=== PATIENT | male | born 1940 | race Caucasian/White ===

== ENCOUNTER 2016-08-26 22:12 | Emergency (ER) | payer MEDICARE, OTHER ==
--- NOTE | 2016-08-26 23:11 | EDM.PDOC ---
ED HPI GENERAL MEDICAL PROBLEM - General Chief Complaint: General Stated Complaint: unsteady gait Time Seen by Provider: 08/26/16 22:30 Source of Information: Reports: Patient, Family History Limitations: Reports: No Limitations - History of Present Illness INITIAL COMMENTS - FREE TEXT/NARRATIVE: Patient was taking his usual walk around the block and started to notice he was wobbling back and forth. He did not feel any spinning or movement but was just having trouble keeping balance. Once he was home he started to have slow improvement and feels OK now. Has h/o a similar but more severe event 14 years ago and was told he had a problem in the cerebellum seen on an MRI (They remember it as a bleed but the story sounds like Vertebral-Basilar insufficiency. Has CAD, Cardiac bypass, COPD, on O2 prn, paroxysmal Afib Onset: Today, Sudden Duration: Hour(s): (1.5), Resolved Prior to Arrival Quality: Reports: Other (no pain) Severity: Moderate Improves with: Reports: None Worsens with: Reports: None Associated Symptoms: Reports: No Other Symptoms, Diaphoresis (Was a little sweaty at home but may be from the hot humid evening) - Related Data Allergies Allergy/AdvReac Type Severity Reaction Status Date / Time lisinopril Allergy Rash Verified 08/26/16 22:18 Home Meds: Home Meds Docusate Sodium [Stool Softener] 200 mg PO QPM PRN 11/10/13 [History] Omeprazole [Prilosec] 40 mg PO DAILY 11/10/13 [History] Losartan Potassium 50 mg PO DAILY 03/22/15 [History] Metoprolol Succinate [Toprol XL] 100 mg PO DAILY 03/22/15 [History] atorvaSTATin [Lipitor] 10 mg PO BEDTIME 03/22/15 [History] Aspirin/Calcium Carbonate/Mag [Aspirin Buffered 325 mg Tab] 81 mg PO DAILY 03/29 [History] Budesonide/Formoterol [Symbicort 160-4.5 MCG] 2 puff INH BID 03/29/16 [History] Fluticasone Propionate [Flonase] 2 sprays NASBOTH DAILY 03/29/16 [History] Furosemide [Lasix] 40 mg PO DAILY PRN 03/29/16 [History] Lactobacillus Acidophilus [Probiotic] 1 cap PO BID 03/29/16 [History] Loperamide HCl [Imodium A-D] 2 mg PO DAILY PRN 03/29/16 [History] Loratadine [Claritin] 10 mg PO DAILY PRN 03/29/16 [History] Tamsulosin HCl [Flomax] 0.4 mg PO DAILY 03/29/16 [History] Warfarin Dosing [Coumadin Ask] 5 mg PO ASDIRECTED 03/29/16 [History] amLODIPine Besylate [Amlodipine Besylate] 2.5 mg PO DAILY 03/29/16 [History] Albuterol [IJD: Ventolin HFA] 1 puff INH 1400,1800 08/26/16 [History] SitaGLIPtin [Januvia] 50 mg PO DAILY 08/26/16 [History] Warfarin [Coumadin] 7.5 mg PO ASDIRECTED 08/26/16 [History] buPROPion [Wellbutrin XL] 150 mg PO DAILY 08/26/16 [History] Past Medical History HEENT History: Reports: Impaired Vision, Other (See Below) Other HEENT History: seasonal allergies Cardiovascular History: Reports: Afib, Bypass, High Cholesterol, Hypertension, Other (See Below) Other Cardiovascular History: Fluid build up in lungs-heart surgery Respiratory History: Reports: COPD Gastrointestinal History: Reports: Chronic Constipation, Chronic Diarrhea, GERD Genitourinary History: Reports: Other (See Below) Other Genitourinary History: prostate swelling Musculoskeletal History: Reports: Back Pain, Chronic Neurological History: Reports: None Psychiatric History: Reports: Depression Endocrine/Metabolic History: Reports: Diabetes, Type II - Past Surgical History HEENT Surgical History: Reports: Other (See Below) Cardiovascular Surgical History: Reports: Vascular Surgery Social & Family History - Tobacco Use Smoking Status *Q: Former Smoker Years of Tobacco use: 63 Used Tobacco, but Quit: Yes Month Tobacco Last Used: November Second Hand Smoke Exposure: No - Caffeine Use Caffeine Use: Reports: Coffee - Alcohol Use Days Per Week of Alcohol Use: 0 - Recreational Drug Use Recreational Drug Use: No ED ROS GENERAL - Review of Systems Review Of Systems: ROS reveals no pertinent complaints other than HPI. ED EXAM, GENERAL - Physical Exam Exam: See Below Exam Limited By: No Limitations General Appearance: Alert, WD/WN, No Apparent Distress Eye Exam: Bilateral Eye: EOMI, PERRL Ears: Normal External Exam, Hearing Loss Nose: Normal Inspection, Normal Mucosa Throat/Mouth: Normal Inspection, Normal Lips, Normal Oropharynx, Normal Voice, No Airway Compromise Head: Atraumatic, Normocephalic Neck: Normal Inspection, Supple, Non-Tender, Full Range of Motion Respiratory/Chest: No Respiratory Distress, Lungs Clear, Normal Breath Sounds, No Accessory Muscle Use Cardiovascular: Normal Peripheral Pulses, Regular Rate, Rhythm, No Murmur GI/Abdominal: Normal Bowel Sounds, Soft, Non-Tender, No Distention Back Exam: Normal Inspection, Full Range of Motion Extremities: Normal Inspection, Normal Range of Motion, No Pedal Edema, Normal Capillary Refill Neurological: Alert, Oriented, CN II-XII Intact, Normal Cognition, No Motor/ Sensory Deficits, Other (finger to nose, heal to st normal. No pronator drift ) Psychiatric: Normal Affect, Normal Mood Skin Exam: Warm, Dry, Intact, Normal Color, No Rash Lymphatic: No Adenopathy Course - Vital Signs Last Recorded V/S: Last Vital Signs Temp 36.6 C 08/26/16 22:18 Pulse 78 08/26/16 23:58 Resp 18 08/26/16 23:58 BP 120/60 08/26/16 23:58 Pulse Ox 98 08/26/16 23:58 - Orders/Labs/Meds Orders: Active Orders 24 hr Category Date Time Status EKG Documentation Completion [RC] ASDIRECTED Care 08/26/16 22:52 Active Chest 2V [CR] Stat Exams 08/26/16 22:52 Taken Head wo Cont [CT] Stat Exams 08/26/16 22:52 Taken EKG 12 Lead [EK] Stat Ther 08/26/16 22:51 Ordered Labs: Laboratory Tests 08/26/16 08/26/16 08/26/16 Range/Units 23:02 23:02 23:02 WBC 6.8 (5.0-10.0) 10^3/uL RBC 3.81 L (4.50-6.00) 10^6/uL Hgb 11.7 L (13.0-17.0) g/dL Hct 34.1 L (40.0-52.0) % MCV 89.6 (82.0-92.0) fL MCH 30.8 (27.0-31.0) pg MCHC 34.3 (32.0-36.0) g/dL RDW 14.6 H (11.5-14.5) % Plt Count 282 (150-300) 10^3/uL MPV 6.1 L (7.4-10.4) fL Neut % (Auto) 60.3 (50.0-70.0) % Lymph % (Auto) 26.4 (20.0-40.0) % [place] % (Auto) 10.3 H (2.0-8.0) % Eos % (Auto) 2.2 (1.0-3.0) % Baso % (Auto) 0.8 (0.0-1.0) % Neut # (Auto) 4.1 (2.5-7.0) 10^3/uL Lymph # (Auto) 1.8 (1.0-4.0) 10^3/uL [place] # (Auto) 0.7 (0.1-0.8) 10^3/uL Eos # (Auto) 0.1 (0.1-0.3) 10^3/uL Baso # (Auto) 0.1 (0.0-0.1) 10^3/uL PT 17.2 H (8.9-11.4) SEC INR 1.6 H (0.9-1.1) Sodium 139 (136-145) mmol/L Potassium 4.4 (3.3-5.3) mmol/L Chloride 101 (98-115) mmol/L Carbon Dioxide 29.6 (21.0-32.0) mmol/L BUN 16 (6-25) mg/dL Creatinine 1.26 H (0.51-1.17) mg/dL Est Cr Clr Drug Dosing 45.71 mL/min Estimated GFR (MDRD) 56 mL/min Glucose 160 H (70-110) mg/dL Calcium 8.7 (8.7-10.3) mg/dL Total Bilirubin 0.2 (0.2-1.0) mg/dL AST 28 (15-37) U/L ALT 43 (12-78) U/L Alkaline Phosphatase 108 (46-116) IU/L Troponin I 0.08 H* (0.00-0.070) ng/mL B-Natriuretic Peptide 190 H (0-100) pg/mL Total Protein 7.8 (6.4-8.2) g/dL Albumin 3.81 (3.00-4.80) g/dL - Re-Assessments/Exams Free Text/Narrative Re-Assessment/Exam: 08/27/16 00:07 Back to normal balance. Departure - Departure Time of Disposition: 00:08 Disposition: Home, Self-Care 01 Condition: Good Clinical Impression: Balance problem - Discharge Information Forms: ED Department Discharge - Problem List Review Problem List Initiated/Reviewed/Updated: No - My Orders Last 24 Hours: My Active Orders 08/26/16 22:51 EKG 12 Lead [EK] Stat 08/26/16 22:52 EKG Documentation Completion [RC] ASDIRECTED Chest 2V [CR] Stat Head wo Cont [CT] Stat - Assessment/Plan Last 24 Hours: My Active Orders 08/26/16 22:51 EKG 12 Lead [EK] Stat 08/26/16 22:52 EKG Documentation Completion [RC] ASDIRECTED Chest 2V [CR] Stat Head wo Cont [CT] Stat Assessment:: 1. Transient imbalance episode tonight. 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 May have had an episode of AFIB at the time which is now resolved. 2. Trace increase in Troponin over negative (0.08 vs 0.07), and some increase in creatinine 1.23 both are likely due to the cardiac cath. he had last week. 3. F/U with the clinic sometime in the next week Plan: as above
[2016-08-26 23:59] VITALS: BP 120/60
== END 2016-08-27 00:40 | disposition home or self-care (01) ==
LOC: KA.ED 22:12 → SUPCPDRO 22:12 → KA.ED 08-27 00:40
DX: R26.89 Other abnormalities of gait and mobility (principal); I10 Essential (primary) hypertension; I25.10 Atherosclerotic heart disease of native coronary artery without angina pectoris; E78.00 Pure hypercholesterolemia, unspecified; J44.9 Chronic obstructive pulmonary disease, unspecified; K21.9 Gastro-esophageal reflux disease without esophagitis; E11.9 Type 2 diabetes mellitus without complications; F32.9 Major depressive disorder, single episode, unspecified; Z95.1 Presence of aortocoronary bypass graft; Z98.890 Other specified postprocedural states; Z87.891 Personal history of nicotine dependence; Z79.82 Long term (current) use of aspirin; Z79.899 Other long term (current) drug therapy; Z88.8 Allergy status to other drugs, medicaments and biological substances
CPT/HCPCS: 70450; 71020; 80053; 83880; 84484; 85025; 85610; 93005; 99285

== ENCOUNTER 2017-01-10 00:01 | Emergency (ER) | payer MEDICARE, OTHER ==
[2017-01-10 00:44] VITALS: BP 137/61
--- NOTE | 2017-01-10 01:13 | EDM.PDOC ---
ED HPI GENERAL MEDICAL PROBLEM - General Chief Complaint: General Stated Complaint: falling Time Seen by Provider: 01/10/17 01:05 Source of Information: Reports: Patient, Family ( and daughter) History Limitations: Reports: No Limitations - History of Present Illness INITIAL COMMENTS - FREE TEXT/NARRATIVE: Patient is a 76-year-old gentleman who presents to emergency department this morning via private vehicle with and daughter. states that this evening patient went up stairs into the master bathroom to change and get ready for bed. She heard a bang and when she went upstairs she found him sitting on the floor. He states that he slipped and slid down the wall. states that he has had multiple fall episodes over last couple months, has been seen by Dr. Babcock, and was also seen by cardiology 3 weeks ago. Exam is said to be negative and cardiology referred them back to primary care for a neurology consult. Patient appears in no distress, is currently on blood thinners, has no acute bruising, and is acting appropriate. Prior to the patient being examined, the daughter requested patient be admitted and transferred tomorrow to [facility] for neurology consult. Patient states that he does have some left shoulder discomfort, but denies any head injury, headache, vertigo, chest pain, shortness of breath, neck pain, hip pain, back pain, vision changes, or lower extremity pain. Onset: Gradual Onset Date: 01/09/17 Onset Time: 23:00 Duration: Hour(s): Location: Reports: Upper Extremity, Left Quality: Reports: Ache Severity: Mild Improves with: Reports: None Worsens with: Reports: Movement Associated Symptoms: Reports: No Other Symptoms - Related Data Allergies Allergy/AdvReac Type Severity Reaction Status Date / Time lisinopril Allergy Rash Verified 01/10/17 00:55 Home Meds: Home Meds Docusate Sodium [Stool Softener] 200 mg PO QPM PRN 11/10/13 [History] Omeprazole [Prilosec] 40 mg PO DAILY 11/10/13 [History] Losartan Potassium 50 mg PO DAILY 03/22/15 [History] Metoprolol Succinate [Toprol XL] 100 mg PO DAILY 03/22/15 [History] atorvaSTATin [Lipitor] 10 mg PO BEDTIME 03/22/15 [History] Aspirin/Calcium Carbonate/Mag [Aspirin Buffered 325 mg Tab] 81 mg PO DAILY 03/29 [History] Budesonide/Formoterol [Symbicort 160-4.5 MCG] 2 puff INH BID 03/29/16 [History] Fluticasone Propionate [Flonase] 2 sprays NASBOTH DAILY 03/29/16 [History] Furosemide [Lasix] 40 mg PO DAILY PRN 03/29/16 [History] Lactobacillus Acidophilus [Probiotic] 1 cap PO BID 03/29/16 [History] Loperamide HCl [Imodium A-D] 2 mg PO DAILY PRN 03/29/16 [History] Loratadine [Claritin] 10 mg PO DAILY PRN 03/29/16 [History] Tamsulosin HCl [Flomax] 0.4 mg PO DAILY 03/29/16 [History] Warfarin Dosing [Coumadin Ask] 5 mg PO ASDIRECTED 03/29/16 [History] amLODIPine Besylate [Amlodipine Besylate] 2.5 mg PO DAILY 03/29/16 [History] Albuterol [IJD: Ventolin HFA] 1 puff INH 1400,1800 08/26/16 [History] SitaGLIPtin [Januvia] 50 mg PO DAILY 08/26/16 [History] Warfarin [Coumadin] 7.5 mg PO ASDIRECTED 08/26/16 [History] buPROPion [Wellbutrin XL] 150 mg PO DAILY 08/26/16 [History] Past Medical History HEENT History: Reports: Impaired Vision, Other (See Below) Other HEENT History: seasonal allergies Cardiovascular History: Reports: Afib, Bypass, High Cholesterol, Hypertension, Other (See Below) Other Cardiovascular History: Fluid build up in lungs-heart surgery Respiratory History: Reports: COPD Other Respiratory History: O2 - continues Gastrointestinal History: Reports: Chronic Constipation, Chronic Diarrhea, GERD Genitourinary History: Reports: Other (See Below) Other Genitourinary History: prostate swelling Musculoskeletal History: Reports: Back Pain, Chronic Neurological History: Reports: None Other Neuro History: CVA vs TIA - 14 years ago Psychiatric History: Reports: Depression Endocrine/Metabolic History: Reports: Diabetes, Type II - Infectious Disease History Infectious Disease History: Reports: Chicken Pox, Shingles - Past Surgical History HEENT Surgical History: Reports: Other (See Below) Cardiovascular Surgical History: Reports: Vascular Surgery Social & Family History - Tobacco Use Smoking Status *Q: Former Smoker Years of Tobacco use: 63 Packs/Tins Daily: 0 Used Tobacco, but Quit: Yes Month Tobacco Last Used: November Second Hand Smoke Exposure: No - Caffeine Use Caffeine Use: Reports: Coffee - Alcohol Use Days Per Week of Alcohol Use: 0 - Recreational Drug Use Recreational Drug Use: No ED ROS GENERAL - Review of Systems Review Of Systems: ROS reveals no pertinent complaints other than HPI. Constitutional: Reports: No Symptoms HEENT: Reports: No Symptoms Respiratory: Reports: No Symptoms Cardiovascular: Reports: No Symptoms Endocrine: Reports: No Symptoms GI/Abdominal: Reports: No Symptoms : Reports: No Symptoms Musculoskeletal: Reports: No Symptoms Skin: Reports: No Symptoms Neurological: Reports: No Symptoms Psychiatric: Reports: No Symptoms Hematologic/Lymphatic: Reports: No Symptoms Immunologic: Reports: No Symptoms ED EXAM, GENERAL - Physical Exam Exam: See Below Exam Limited By: No Limitations General Appearance: Alert, WD/WN, No Apparent Distress Eye Exam: Bilateral Eye: Normal Inspection Nose: Normal Inspection, No Blood Throat/Mouth: Normal Inspection, Normal Oropharynx, No Airway Compromise Head: Atraumatic, Normocephalic Neck: Normal Inspection, Supple, Non-Tender, Full Range of Motion Respiratory/Chest: No Respiratory Distress, Lungs Clear, Normal Breath Sounds, No Accessory Muscle Use, Chest Non-Tender Cardiovascular: Regular Rate, Rhythm, No Murmur GI/Abdominal: Normal Bowel Sounds, Soft, Non-Tender Back Exam: Normal Inspection, Full Range of Motion. No: CVA Tenderness (L), CVA Tenderness (R) Extremities: Normal Inspection, Arm Pain (Left shoulder) Neurological: Alert, Oriented, CN II-XII Intact, Normal Cognition Psychiatric: Normal Affect, Normal Mood Skin Exam: Warm, Dry, Intact, Normal Color, No Rash Course - Vital Signs Last Recorded V/S: Last Vital Signs Temp 99.5 F 01/10/17 00:39 Pulse 90 01/10/17 00:39 Resp 32 H 01/10/17 00:39 BP 137/61 01/10/17 00:39 Pulse Ox 84 L 01/10/17 00:39 Orthostatic Blood Pressure [ 129/73 Standing] Orthostatic Blood Pressure [ 130/67 Sitting] Orthostatic Blood Pressure [ 120/61 Supine] - Orders/Labs/Meds Orders: Active Orders 24 hr Category Date Time Status Shoulder Comp Lt [CR] Stat Exams 01/10/17 01:01 Ordered - Re-Assessments/Exams Free Text/Narrative Re-Assessment/Exam: 01/10/17 01:28 Patient is afebrile, nontoxic appearing, vital signs stable. at bedside. Symptoms are of a nodule, chronic basis. Evaluation by neurology is appropriate. Patient will follow up Wednesday with Dr. Babcock for consultation set up. Departure - Departure Time of Disposition: 01:30 Disposition: Home, Self-Care 01 Condition: Good Clinical Impression: Fall in elderly patient Dementia Qualifiers: Dementia type: unspecified type Dementia behavioral disturbance: without behavioral disturbance Qualified Code(s): F03.90 - Unspecified dementia without behavioral disturbance - Discharge Information Instructions: Fall Prevention in the Home, [id number], Dementia, [id number] Referrals: Lupe Burch MD [Physician] - Additional Instructions: Follow-up with Dr. Babcock in the clinic on Wednesday. - My Orders Last 24 Hours: My Active Orders 01/10/17 01:01 Shoulder Comp Lt [CR] Stat - Assessment/Plan Last 24 Hours: My Active Orders 01/10/17 01:01 Shoulder Comp Lt [CR] Stat Assessment:: Falls and elderly, dementia Plan: Follow-up with Dr. Babcock on Wednesday.
== END 2017-01-10 01:50 | disposition home or self-care (01) ==
LOC: KA.ED 00:01
DX: F03.90 Unspecified dementia, unspecified severity, without behavioral disturbance, psychotic disturbance, mood disturbance, and anxiety (principal); M25.512 Pain in left shoulder; E78.00 Pure hypercholesterolemia, unspecified; I10 Essential (primary) hypertension; K21.9 Gastro-esophageal reflux disease without esophagitis; E11.9 Type 2 diabetes mellitus without complications; Z88.8 Allergy status to other drugs, medicaments and biological substances; Z79.899 Other long term (current) drug therapy; Z87.891 Personal history of nicotine dependence; W19.XXXA Unspecified fall, initial encounter; Z79.01 Long term (current) use of anticoagulants
CPT/HCPCS: 73030-LT; 99283

== ENCOUNTER 2017-02-21 17:55 | Emergency (ER) | payer MEDICARE, OTHER ==
[2017-02-21 18:14] VITALS: BP 135/63
--- NOTE | 2017-02-21 18:47 | EDM.PDOC ---
ED HPI GENERAL MEDICAL PROBLEM - General Chief Complaint: ENT Problem Stated Complaint: RIGHT EAR HAS AN EAR PLUG STUCK Time Seen by Provider: 02/21/17 18:00 Source of Information: Reports: Patient History Limitations: Reports: No Limitations - History of Present Illness INITIAL COMMENTS - FREE TEXT/NARRATIVE: Pleasant 76-year-old male presents emergency room with complaints of a foreign body in his right ear. Patient reports the tip of his hearing a got stuck in his right ear and he was unable to get it out he comes in to have this removed. No other complaints are voiced. This happened earlier today. Onset: Today Onset Date: 02/21/17 Onset Time: 17:00 Duration: Minutes:, Constant Location: Reports: Head (right ear foerign body, ear plug from hearing aid) Quality: Reports: Pressure Severity: Mild Improves with: Reports: None Worsens with: Reports: None - Related Data Allergies Allergy/AdvReac Type Severity Reaction Status Date / Time lisinopril Allergy Rash Verified 02/21/17 18:14 Home Meds: Home Meds Omeprazole [Prilosec] 40 mg PO DAILY 11/10/13 [History] Losartan Potassium 50 mg PO DAILY 03/22/15 [History] atorvaSTATin [Lipitor] 10 mg PO BEDTIME 03/22/15 [History] Budesonide/Formoterol [Symbicort 160-4.5 MCG] 2 puff INH DAILY 03/29/16 [History ] Fluticasone Propionate [Flonase] 2 sprays NASBOTH DAILY 03/29/16 [History] Furosemide [Lasix] 40 mg PO DAILY 03/29/16 [History] Lactobacillus Acidophilus [Probiotic] 1 cap PO BID 03/29/16 [History] Loratadine [Claritin] 10 mg PO DAILY PRN 03/29/16 [History] Tamsulosin HCl [Flomax] 0.4 mg PO DAILY 03/29/16 [History] Warfarin Dosing [Coumadin Ask] 5 mg PO ASDIRECTED 03/29/16 [History] Albuterol [IJD: Ventolin HFA] 1 puff INH DAILY 08/26/16 [History] buPROPion [Wellbutrin XL] 150 mg PO DAILY 08/26/16 [History] Aspirin [Halfprin] 81 mg PO DAILY 01/10/17 [History] Metoprolol Succinate [Toprol XL] 200 mg PO DAILY 01/10/17 [History] Escitalopram [Lexapro] 20 mg PO DAILY 02/21/17 [History] metFORMIN HCl [Metformin HCl] 1,000 mg PO BID 02/21/17 [History] Past Medical History HEENT History: Reports: Impaired Vision, Other (See Below) Other HEENT History: seasonal allergies Cardiovascular History: Reports: Afib, Bypass, High Cholesterol, Hypertension, Other (See Below) Other Cardiovascular History: Fluid build up in lungs-heart surgery Respiratory History: Reports: COPD Other Respiratory History: O2 - continues Gastrointestinal History: Reports: Chronic Constipation, Chronic Diarrhea, GERD Genitourinary History: Reports: Other (See Below) Other Genitourinary History: prostate swelling Musculoskeletal History: Reports: Back Pain, Chronic Neurological History: Reports: None Other Neuro History: CVA vs TIA - 14 years ago Psychiatric History: Reports: Depression Endocrine/Metabolic History: Reports: Diabetes, Type II - Infectious Disease History Infectious Disease History: Reports: Chicken Pox, Shingles - Past Surgical History HEENT Surgical History: Reports: Other (See Below) Cardiovascular Surgical History: Reports: Coronary Artery Bypass, Vascular Surgery GI Surgical History: Reports: Hernia, Inguinal Social & Family History - Tobacco Use Smoking Status *Q: Former Smoker Years of Tobacco use: 63 Packs/Tins Daily: 0 Used Tobacco, but Quit: Yes Month Tobacco Last Used: November Second Hand Smoke Exposure: No - Caffeine Use Caffeine Use: Reports: Coffee - Alcohol Use Days Per Week of Alcohol Use: 0 - Recreational Drug Use Recreational Drug Use: No ED ROS ENT - Review of Systems Review Of Systems: ROS reveals no pertinent complaints other than HPI. ED EXAM, ENT - Physical Exam Exam: See Below Exam Limited By: No Limitations General Appearance: Alert, WD/WN, No Apparent Distress Ears: Other (right ear foreign body is seen in the canal) Nose: Normal Inspection ED ENT PROCEDURES - Foreign Body Removal Foreign Body Other Location Comment:: Earplug from a hearing a was removed using a roton forceps. This was removed without difficulty. Anesthesia Type: None Complications: No Course - Vital Signs Last Recorded V/S: Last Vital Signs Temp 97.8 F 02/21/17 18:10 Pulse 90 02/21/17 18:10 Resp 16 02/21/17 18:10 BP 135/63 02/21/17 18:10 Pulse Ox 95 02/21/17 18:10 Departure - Departure Time of Disposition: 18:40 Disposition: Home, Self-Care 01 Condition: Good Clinical Impression: Foreign body of ear, right Qualifiers: Encounter type: initial encounter Qualified Code(s): T16.1XXA - Foreign body in right ear, initial encounter Foreign body in ear Qualifiers: Encounter type: initial encounter Laterality: right Qualified Code(s): T16.1XXA - Foreign body in right ear, initial encounter - Discharge Information Referrals: Lupe Burch MD [Primary Care Provider] - - Assessment/Plan Assessment:: Foreign body right ear Plan: Foreign body was removed without difficulty using a roton forceps. Foreign body was earplug from hearing aid right ear. Patient tolerated procedure well. He was discharged to home
== END 2017-02-21 18:30 | disposition home or self-care (01) ==
LOC: KA.ED 17:55
DX: T16.1XXA Foreign body in right ear, initial encounter (principal); E11.9 Type 2 diabetes mellitus without complications; I48.91 Unspecified atrial fibrillation; I10 Essential (primary) hypertension; E78.00 Pure hypercholesterolemia, unspecified; K21.9 Gastro-esophageal reflux disease without esophagitis; Z79.84 Long term (current) use of oral hypoglycemic drugs; Z88.8 Allergy status to other drugs, medicaments and biological substances; Z87.891 Personal history of nicotine dependence; Z79.899 Other long term (current) drug therapy; X58.XXXA Exposure to other specified factors, initial encounter
CPT/HCPCS: 69200; 99282

== ENCOUNTER 2018-03-21 14:14 | Emergency (ER) | payer MEDICARE, OTHER ==
[2018-03-21] MEDS ORDERED: Sodium Chloride 0.9% 10 ML Syringe FLUSH PRN (14:27)
--- NOTE | 2018-03-21 15:18 | CR ---
[id number] RAD/RAD Chest PA or AP 1V EXAM: SINGLE VIEW CHEST. INDICATION: SHORTNESS OF BREATH COMPARISON: CORRELATION IS MADE WITH THE EXAM OF FEBRUARY 07, 2018. FINDINGS: There is mild to moderate edema. There is a small right pleural effusion. The cardiac silhouette is enlarged. IMPRESSION: CHF. Andres Aden MD 03/21/18 [id number] Thank you for allowing us to participate in the care of your patient.
[2018-03-21 15:25] LABS: ANION GAP 14.4 mmol/L (5-15); CHLORIDE,CL 102 mmol/L (98-115); SODIUM,NA 139 mmol/L (136-145)
--- NOTE | 2018-03-21 15:51 | EDM.PDOC ---
ED HPI GENERAL MEDICAL PROBLEM - General Chief Complaint: Respiratory Problem Stated Complaint: Shortness of breath Time Seen by Provider: 03/21/18 14:25 Source of Information: Reports: Patient, Family (), Provider (Discussed case with Dr. Babcock) History Limitations: Reports: No Limitations - History of Present Illness INITIAL COMMENTS - FREE TEXT/NARRATIVE: Patient is a 77-year-old gentleman who presents to the emergency department via nursing facility transportation with a complaint of shortness of breath, decreased heart rate, and decreased oxygen saturation. Per patient, he stated while at nursing facility he ambulated to physical therapy without oxygen and became short of breath. Nursing staff became concerned and discussed situation with Dr. Babcock. Dr. Babcock decided to have patient present to emergency department for evaluation. Patient denies chest pain, headache, fever, nausea, vomiting, diarrhea. Onset: Today Duration: Hour(s): Quality: Reports: Other (No pain or discomfort) Severity: Mild Improves with: Reports: Other (Oxygen therapy) Worsens with: Reports: Other (Ambulation) Associated Symptoms: Reports: Shortness of Breath - Related Data Allergies Allergy/AdvReac Type Severity Reaction Status Date / Time lisinopril Allergy Rash Verified 03/21/18 14:28 Home Meds: Home Meds Omeprazole [Prilosec] 40 mg PO DAILY 11/10/13 [History] atorvaSTATin [Lipitor] 10 mg PO BEDTIME 03/22/15 [History] Fluticasone Propionate [Flonase] 2 sprays NASBOTH DAILY PRN 03/29/16 [History] Furosemide [Lasix] 40 mg PO DAILY 03/29/16 [History] Lactobacillus Acidophilus [Probiotic] 1 cap PO BID 03/29/16 [History] Tamsulosin HCl [Flomax] 0.8 mg PO BEDTIME 03/29/16 [History] Warfarin Dosing [Coumadin Ask] 5 mg PO DAILY 03/29/16 [History] buPROPion [Wellbutrin XL] 300 mg PO DAILY 08/26/16 [History] Aspirin [Halfprin] 81 mg PO DAILY 01/10/17 [History] Metoprolol Succinate [Toprol XL] 200 mg PO DAILY 01/10/17 [History] metFORMIN HCl [Metformin HCl] 1,000 mg PO BIDMEALS 02/21/17 [History] Cholecalciferol (Vitamin D3) [Vitamin D3] 3,000 unit PO DAILY 02/07/18 [History] Cyanocobalamin (Vitamin B12) [Vitamin B12] 1,000 mcg PO BEDTIME 02/07/18 [ History] Docusate Sodium [Colace] 100 mg PO DAILY PRN 02/07/18 [History] Gabapentin [Neurontin] 300 mg PO BID 02/07/18 [History] Insulin Glarg,Human.Rec.Analog [Lantus Solostar] 15 unit SQ BEDTIME 02/07/18 [ History] glipiZIDE [Glucotrol] 10 mg PO BIDMEALS 02/07/18 [History] Albuterol Sulfate [Proair Hfa] 8.5 gm IH Q6H PRN 03/21/18 [History] Candesartan Cilexetil 16 mg PO DAILY 03/21/18 [History] Umeclidinium Brm/Vilanterol Tr [Anoro Ellipta 62.5-25 MCG] 1 puff INH DAILY 06/03 [History] Past Medical History HEENT History: Reports: Hard of Hearing, Impaired Vision, Other (See Below) Other HEENT History: rhinitis Cardiovascular History: Reports: Afib, Bypass, CAD, Heart Failure, High Cholesterol, Hypertension, SOB on Exertion, Other (See Below) Other Cardiovascular History: Fluid build up in lungs-heart surgery Respiratory History: Reports: COPD, Sleep Apnea Other Respiratory History: O2 - continues Gastrointestinal History: Reports: Chronic Constipation, Chronic Diarrhea, GERD Genitourinary History: Reports: Diabetic Nephropathy, Other (See Below) Other Genitourinary History: prostate swelling Musculoskeletal History: Reports: Back Pain, Chronic, Fracture, Other (See Below ) Other Musculoskeletal History: right ankle fx. 2019 Neurological History: Reports: None Other Neuro History: CVA vs TIA - 14 years ago Psychiatric History: Reports: Depression Endocrine/Metabolic History: Reports: Diabetes, Type II, Vitamin D Deficiency - Infectious Disease History Infectious Disease History: Reports: Chicken Pox, Shingles - Past Surgical History Head Surgeries/Procedures: Reports: None Other HEENT Surgeries/Procedures: suture to eyelid Cardiovascular Surgical History: Reports: Coronary Artery Bypass, Vascular Surgery GI Surgical History: Reports: Colonoscopy, Hernia, Inguinal Male Surgical History: Reports: None Endocrine Surgical History: Reports: None Social & Family History - Family History Family Medical History: Noncontributory - Tobacco Use Years of Tobacco use: 50 Packs/Tins Daily: 1 Used Tobacco, but Quit: Yes Month/Year Tobacco Last Used: 02/2012 Second Hand Smoke Exposure: No - Caffeine Use Caffeine Use: Reports: Coffee, Soda - Recreational Drug Use Recreational Drug Use: No ED ROS GENERAL - Review of Systems Review Of Systems: ROS reveals no pertinent complaints other than HPI. Constitutional: Reports: No Symptoms HEENT: Reports: No Symptoms Respiratory: Reports: Shortness of Breath Cardiovascular: Reports: No Symptoms Endocrine: Reports: No Symptoms GI/Abdominal: Reports: No Symptoms : Reports: No Symptoms Musculoskeletal: Reports: No Symptoms Skin: Reports: No Symptoms Neurological: Reports: No Symptoms Psychiatric: Reports: No Symptoms Hematologic/Lymphatic: Reports: No Symptoms Immunologic: Reports: No Symptoms ED EXAM, GENERAL - Physical Exam Exam: See Below Exam Limited By: No Limitations General Appearance: Alert, WD/WN, No Apparent Distress Eye Exam: Bilateral Eye: Normal Inspection Nose: Normal Inspection, Normal Mucosa, No Blood Throat/Mouth: Normal Inspection, Normal Oropharynx, No Airway Compromise Head: Atraumatic, Normocephalic Neck: Normal Inspection, Supple, Non-Tender Respiratory/Chest: No Respiratory Distress, No Accessory Muscle Use, Chest Non- Tender, Crackles Cardiovascular: No Murmur, Irregularly Irregular GI/Abdominal: Normal Bowel Sounds, Soft, Non-Tender Back Exam: Normal Inspection. No: CVA Tenderness (L), CVA Tenderness (R) Extremities: Normal Inspection, No Pedal Edema Neurological: Alert, Oriented, Normal Cognition Psychiatric: Normal Affect, Normal Mood Skin Exam: Warm, Dry, Intact, Normal Color, No Rash Lymphatic: No Adenopathy EKG INTERPRETATION EKG Date: 03/21/18 Time: 14:45 Rhythm: A-Fib Rate (Beats/Min): 73 [place]: Normal QRS: Normal ST-T: Other (Nonspecific) Comparison: Change From Previous EKG Course - Vital Signs Last Recorded V/S: Last Vital Signs Temp 98.2 F 03/21/18 14:23 Pulse 66 03/21/18 16:05 Resp 15 03/21/18 16:05 BP 129/49 L 03/21/18 16:05 Pulse Ox 96 03/21/18 16:05 - Orders/Labs/Meds Orders: Active Orders 24 hr Category Date Time Status EKG Documentation Completion [RC] ASDIRECTED Care 03/21/18 14:27 Ordered Peripheral IV Care [RC] . DIRECTED Care 03/21/18 14:27 Ordered Sodium Chloride 0.9% [Saline Flush] Med 03/21/18 14:27 Ordered 10 ml FLUSH Q8HR PRN Peripheral IV Insertion Adult [OM.PC] Routine Oth 03/21/18 14:27 Ordered EKG 12 Lead [EK] Routine Ther 03/21/18 14:25 Ordered Medication Orders Sodium Chloride (Saline Flush) 10 ml FLUSH Q8HR PRN PRN Reason: keep vein open Last Admin: 03/21/18 16:04 Dose: 10 ml Labs: Laboratory Tests 03/21/18 03/21/18 03/21/18 Range/Units 14:30 14:30 15:16 WBC 8.20 (5.00-10.00) 10^3/uL RBC 3.56 L (4.50-6.00) 10^6/uL Hgb 10.4 L (13.0-17.0) g/dL Hct 33.2 L (40.0-52.0) % MCV 93.3 H (82.0-92.0) fL MCH 29.2 (27.0-31.0) pg MCHC 31.3 L (32.0-36.0) g/dL RDW 18.3 H (11.5-14.5) % Plt Count 301 (150-400) 10^3/uL MPV 8.4 (7.4-10.4) fL Immature Gran % (Auto) 0.4 (0.0-5.0) % Neut % (Auto) 67.3 (50.0-70.0) % Lymph % (Auto) 20.4 (20.0-40.0) % [place] % (Auto) 9.0 H (2.0-8.0) % Eos % (Auto) 2.3 (1.0-3.0) % Baso % (Auto) 0.6 (0.0-1.0) % Immature Gran # (Auto) 0.03 (0.00-0.50) 10^3/uL Neut # (Auto) 5.52 (2.50-7.00) 10^3/uL Lymph # (Auto) 1.67 (1.00-4.00) 10^3/uL [place] # (Auto) 0.74 (0.10-0.80) 10^3/uL Eos # (Auto) 0.19 (0.10-0.30) 10^3/uL Baso # (Auto) 0.05 (0.00-0.10) 10^3/uL Sodium 139 (136-145) mmol/L Potassium 4.6 (3.3-5.3) mmol/L Chloride 102 (98-115) mmol/L Carbon Dioxide 27.2 (21.0-32.0) mmol/L Anion Gap 14.4 (5-15) mmol/L BUN 15 (6-25) mg/dL Creatinine 1.09 (0.51-1.17) mg/dL Est Cr Clr Drug Dosing 51.22 mL/min Estimated GFR (MDRD) > 60 mL/min Glucose 178 H (75 - 99) mg/dL Calcium 8.7 (8.7-10.3) mg/dL Total Bilirubin 0.4 (0.2-1.0) mg/dL AST 18 (15-37) U/L ALT 23 (12-78) U/L Alkaline Phosphatase 98 (46-116) IU/L Troponin I < 0.04 (0.00-0.070) ng/mL B-Natriuretic Peptide 552 H (0-100) pg/mL Total Protein 7.1 (6.4-8.2) g/dL Albumin 2.99 L (3.00-4.80) g/dL Specimen Type Urinvoid Urine Color Yellow (YELLOW) Urine Appearance Clear (CLEAR) Urine pH 7.0 (5.0-9.0) Ur Specific [place] 1.010 (1.005-1.030) Urine Protein Negative (NEGATIVE) mg/dL Urine Glucose (UA) Negative (NEGATIVE) mg/dL Urine Ketones Negative (NEGATIVE) mg/dL Urine Occult Blood Negative (NEGATIVE) Urine Nitrite Negative (NEGATIVE) Urine Bilirubin Negative (NEGATIVE) Urine Urobilinogen 1.0 (0.2-1.0) E.U./dL Ur Leukocyte Esterase Negative (NEGATIVE) Urine RBC 0-5 (0-5) /HPF Urine WBC 0-5 (0-5) /HPF Ur Epithelial Cells Few /LPF Urine Bacteria Few (NONE TO FEW) /HPF Meds: Medications Generic Name Dose Route Start Last Admin Trade Name Freq PRN Reason Stop Dose Admin Sodium Chloride 10 ml 03/21/18 14:27 03/21/18 16:04 Saline Flush FLUSH 10 ml Q8HR PRN Administration keep vein open Discontinued Medications Generic Name Dose Route Start Last Admin Trade Name Freq PRN Reason Stop Dose Admin Furosemide 40 mg 03/21/18 15:56 03/21/18 16:04 Lasix IVPUSH 03/21/18 15:57 40 mg NOW ONE Administration - Radiology Interpretation Free Text/Narrative:: Chest x-ray shows bilateral perihilar congestion consistent with moderate CHF. - Re-Assessments/Exams Free Text/Narrative Re-Assessment/Exam: 03/21/18 15:55 Patient afebrile, vital signs stable, oxygen saturation 94% on 3 L nasal cannula Free Text/Narrative Re-Assessment/Exam: 03/21/18 16:[address] Babcock. Patient will be returned to the nursing facility and managed closely. Departure - Departure Time of Disposition: 16:08 Disposition: DC/Tfer to Medicaid Nur Fac 64 Condition: Good Clinical Impression: CHF exacerbation Qualifiers: Heart failure type: unspecified Qualified Code(s): I50.9 - Heart failure, unspecified - Discharge Information Instructions: Shortness of Breath, Adult, [id number], Heart Failure, Easy-to- Read, Form - Daily Weight Record Referrals: Lupe Burch MD [Primary Care Provider] - Forms: ED Department Discharge Additional Instructions: Continue current parameters with Lasix. Patient required to be on oxygen therapy at all times. - My Orders Last 24 Hours: My Active Orders 03/21/18 14:25 EKG 12 Lead [EK] Routine 03/21/18 14:27 EKG Documentation Completion [RC] ASDIRECTED Peripheral IV Care [RC] . DIRECTED Sodium Chloride 0.9% [Saline Flush] 10 ml FLUSH Q8HR PRN Peripheral IV Insertion Adult [OM.PC] Routine - Assessment/Plan Last 24 Hours: My Active Orders 03/21/18 14:25 EKG 12 Lead [EK] Routine 03/21/18 14:27 EKG Documentation Completion [RC] ASDIRECTED Peripheral IV Care [RC] . DIRECTED Sodium Chloride 0.9% [Saline Flush] 10 ml FLUSH Q8HR PRN Peripheral IV Insertion Adult [OM.PC] Routine Assessment:: CHF Plan: Return to nursing facility
[2018-03-21] MEDS ORDERED: Furosemide 40 MG/4 ML VIAL IVPUSH ONE (15:56)
[2018-03-21 16:06] VITALS: BP 129/49
== END 2018-03-21 16:30 ==
LOC: KA.ED 14:14
DX: I11.0 Hypertensive heart disease with heart failure (principal); I50.9 Heart failure, unspecified; E11.40 Type 2 diabetes mellitus with diabetic neuropathy, unspecified; Z88.8 Allergy status to other drugs, medicaments and biological substances; Z79.899 Other long term (current) drug therapy; Z87.891 Personal history of nicotine dependence
CPT/HCPCS: 71045; 80053; 81001; 83880; 84484; 85025; 93005; 96374; 99284; 99285; J1940

== ENCOUNTER 2018-10-06 20:05 | Observation (INO) | payer MEDICARE, OTHER ==
[2018-10-06] MEDS ORDERED: Sodium Chloride 0.9% 10 ML Syringe FLUSH PRN ×2 (20:44→21:49)
--- NOTE | 2018-10-06 20:50 | EDM.PDOC ---
ED HPI GENERAL MEDICAL PROBLEM - General Chief Complaint: General Stated Complaint: WEAKNESS Time Seen by Provider: 10/06/18 20:30 Source of Information: Reports: Patient, EMS, Family History Limitations: Reports: No Limitations - History of Present Illness INITIAL COMMENTS - FREE TEXT/NARRATIVE: 77 YO WM presents to ER with lower extremity weakness that became worse tonight. states pt with weakness due to general deconditioning. Pt ambulates with a walker on most days but states he has developed weakness and fatigue in the past similar to tonight. Pt ambulated to the bathroom tonight and as he was getting ready to sit on the commode he states his legs felt weak and he was unable to support himself without holding on to sink and with the assistance of his . Pt states after that moment he felt unsteady on his feet and due to his weakness his decided to call EMS for evaluation in ER. Pt is alert and oriented x 3. Pt with peripheral neuropathy related to his diabetes. Pt denies headache, chest pain, recent illness, shortness of breath, urinary frequency or dysuria. Pt denies any visual changes, no facial droop, no confusion and no hemiplegia or unilateral weakness. Pt able to move all extremities without difficulty but feels unstable with standing. Pt reports he just doesn't have much strength in his legs. Onset: Today Duration: Chronic, Getting Worse Location: Reports: Generalized Quality: Reports: Burning Severity: Mild Improves with: Reports: Rest Worsens with: Reports: Movement Context: Reports: Activity Associated Symptoms: Reports: No Other Symptoms, Weakness. Denies: Confusion, Chest Pain, Cough, cough w sputum, Diaphoresis, Fever/Chills, Headaches, Nausea/ Vomiting, Shortness of Breath, Syncope Treatments HAND DRILLER: Reports: EKG - Related Data Allergies Allergy/AdvReac Type Severity Reaction Status Date / Time lisinopril Allergy Rash Verified 10/06/18 20:23 Home Meds: Home Meds Omeprazole [Prilosec] 40 mg PO DAILY 11/10/13 [History] atorvaSTATin [Lipitor] 10 mg PO BEDTIME 03/22/15 [History] Fluticasone Propionate [Flonase] 1 sprays NASBOTH DAILY PRN 03/29/16 [History] Furosemide [Lasix] 40 mg PO DAILY 03/29/16 [History] Lactobacillus Acidophilus [Probiotic] 1 cap PO BID 03/29/16 [History] Tamsulosin HCl [Flomax] 0.8 mg PO BEDTIME 03/29/16 [History] Warfarin Dosing [Coumadin Ask] 7.5 mg PO DAILY 03/29/16 [History] buPROPion [Wellbutrin XL] 300 mg PO DAILY 08/26/16 [History] Aspirin [Halfprin] 81 mg PO DAILY 01/10/17 [History] Metoprolol Succinate [Toprol XL] 200 mg PO DAILY 01/10/17 [History] metFORMIN HCl [Metformin HCl] 1,000 mg PO BIDMEALS 02/21/17 [History] Cholecalciferol (Vitamin D3) [Vitamin D3] 3,000 unit PO DAILY 02/07/18 [History] Cyanocobalamin (Vitamin B12) [Vitamin B12] 1,000 mcg PO BEDTIME 02/07/18 [ History] Docusate Sodium [Colace] 100 mg PO DAILY PRN 02/07/18 [History] Gabapentin [Neurontin] 300 mg PO BID 02/07/18 [History] Insulin Glarg,Human.Rec.Analog [Lantus Solostar] 15 unit SQ BEDTIME 02/07/18 [ History] glipiZIDE [Glucotrol] 10 mg PO BIDMEALS 02/07/18 [History] Albuterol Sulfate [Proair Hfa] 8.5 gm IH Q6H PRN 03/21/18 [History] Candesartan Cilexetil 16 mg PO DAILY 03/21/18 [History] Polymyxin B Sulf/Trimethoprim [Polytrim Eye Drops] 1 drop EYEBOTH QID 03/21/18 [ History] Umeclidinium Brm/Vilanterol Tr [Anoro Ellipta 62.5-25 MCG] 1 puff INH DAILY 06/03 [History] Past Medical History HEENT History: Reports: Hard of Hearing, Impaired Vision, Other (See Below) Other HEENT History: rhinitis Cardiovascular History: Reports: Afib, Bypass, CAD, Heart Failure, High Cholesterol, Hypertension, SOB on Exertion, Other (See Below) Other Cardiovascular History: Fluid build up in lungs-heart surgery Respiratory History: Reports: COPD, Sleep Apnea Other Respiratory History: O2 - continues Gastrointestinal History: Reports: Chronic Constipation, Chronic Diarrhea, GERD Genitourinary History: Reports: Diabetic Nephropathy, Other (See Below) Other Genitourinary History: prostate swelling Musculoskeletal History: Reports: Back Pain, Chronic, Fracture, Other (See Below ) Other Musculoskeletal History: right ankle fx. 2019 Neurological History: Reports: None Other Neuro History: CVA vs TIA - 14 years ago Psychiatric History: Reports: Depression Endocrine/Metabolic History: Reports: Diabetes, Type II, Vitamin D Deficiency - Infectious Disease History Infectious Disease History: Reports: Chicken Pox, Shingles - Past Surgical History Head Surgeries/Procedures: Reports: None Other HEENT Surgeries/Procedures: suture to eyelid Cardiovascular Surgical History: Reports: Coronary Artery Bypass, Vascular Surgery GI Surgical History: Reports: Colonoscopy, Hernia, Inguinal Male Surgical History: Reports: None Endocrine Surgical History: Reports: None Social & Family History - Family History Family Medical History: Noncontributory - Caffeine Use Caffeine Use: Reports: Coffee, Soda ED ROS GENERAL - Review of Systems Review Of Systems: See Below Constitutional: Reports: No Symptoms HEENT: Reports: No Symptoms Respiratory: Reports: No Symptoms Cardiovascular: Reports: No Symptoms Endocrine: Reports: No Symptoms GI/Abdominal: Reports: No Symptoms : Reports: No Symptoms Musculoskeletal: Reports: No Symptoms Skin: Reports: No Symptoms Neurological: Reports: Numbness, Pre-Existing Deficit, Difficulty Walking, Weakness, Gait Disturbance. Denies: Confusion, Dizziness, Headache, Paresthesia , Seizure, Syncope, Tingling, Tremors, Trouble Speaking, Change in Speech Psychiatric: Reports: No Symptoms Hematologic/Lymphatic: Reports: No Symptoms Immunologic: Reports: No Symptoms ED EXAM, GENERAL - Physical Exam Exam: See Below Exam Limited By: No Limitations General Appearance: Alert, WD/WN, No Apparent Distress Eye Exam: Bilateral Eye: EOMI, PERRL Head: Atraumatic, Normocephalic Neck: Normal Inspection, Supple, Non-Tender, Full Range of Motion Respiratory/Chest: No Respiratory Distress, Lungs Clear, Normal Breath Sounds, No Accessory Muscle Use, Chest Non-Tender Cardiovascular: Normal Peripheral Pulses, Regular Rate, Rhythm, No Edema, No Gallop, No JVD, No Murmur, No Rub GI/Abdominal: Normal Bowel Sounds, Soft, Non-Tender, No Organomegaly, No Distention, No Abnormal Bruit, No Mass Back Exam: Normal Inspection, Full Range of Motion, NT Extremities: Normal Inspection, Normal Range of Motion, Non-Tender, Normal Capillary Refill, No Pedal Edema Neurological: Alert, Oriented, CN II-XII Intact, Normal Cognition, Normal Reflexes, No Motor/Sensory Deficits Psychiatric: Normal Affect, Normal Mood Skin Exam: Warm, Dry, Intact, Normal Color, No Rash Lymphatic: No Adenopathy EKG INTERPRETATION EKG Date: 10/06/18 Time: 20:13 Rhythm: A-Fib Rate (Beats/Min): 57 [place]: Normal P-Wave: Absent QRS: Normal ST-T: Normal QT: Normal Course - Vital Signs Last Recorded V/S: Last Vital Signs Temp 36.9 C 10/06/18 20:10 Pulse 61 10/06/18 20:10 Resp 16 10/06/18 20:10 BP 116/54 L 10/06/18 20:10 Pulse Ox 93 L 10/06/18 20:10 Orthostatic Blood Pressure [ 100/51 Standing] Orthostatic Blood Pressure [ 118/54 Sitting] Orthostatic Blood Pressure [ 112/46 Supine] - Orders/Labs/Meds Orders: Active Orders 24 hr Category Date Time Status EKG Documentation Completion [RC] ASDIRECTED Care 10/06/18 20:42 Active Orthostatic Vital Signs [RC] ASDIRECTED Care 10/06/18 20:44 Active Peripheral IV Care [RC] . DIRECTED Care 10/06/18 20:44 Active Chest 2V [CR] Stat Exams 10/06/18 20:43 Taken UA W/MICROSCOPIC [URIN] Stat Lab 10/06/18 20:43 Ordered Sodium Chloride 0.9% [Saline Flush] Med 10/06/18 20:44 Active 10 ml FLUSH Q8HR PRN Peripheral IV Insertion Adult [OM.PC] Routine Oth 10/06/18 20:44 Ordered EKG 12 Lead [EK] Routine Ther 10/06/18 20:15 Ordered Medication Orders Sodium Chloride (Saline Flush) 10 ml FLUSH Q8HR PRN PRN Reason: keep vein open Labs: Laboratory Tests 10/06/18 10/06/18 Range/Units 20:00 20:00 WBC 7.55 (5.00-10.00) 10^3/uL RBC 3.84 L (4.50-6.00) 10^6/uL Hgb 11.7 L (13.0-17.0) g/dL Hct 35.6 L (40.0-52.0) % MCV 92.7 H (82.0-92.0) fL MCH 30.5 (27.0-31.0) pg MCHC 32.9 (32.0-36.0) g/dL RDW 16.2 H (11.5-14.5) % Plt Count 219 D (150-400) 10^3/uL MPV 8.5 (7.4-10.4) fL Immature Gran % (Auto) 0.4 (0.0-5.0) % Neut % (Auto) 58.8 (50.0-70.0) % Lymph % (Auto) 29.7 (20.0-40.0) % [place] % (Auto) 9.5 H (2.0-8.0) % Eos % (Auto) 1.3 (1.0-3.0) % Baso % (Auto) 0.3 (0.0-1.0) % Immature Gran # (Auto) 0.03 (0.00-0.50) 10^3/uL Neut # (Auto) 4.44 (2.50-7.00) 10^3/uL Lymph # (Auto) 2.24 (1.00-4.00) 10^3/uL [place] # (Auto) 0.72 (0.10-0.80) 10^3/uL Eos # (Auto) 0.10 (0.10-0.30) 10^3/uL Baso # (Auto) 0.02 (0.00-0.10) 10^3/uL Sodium 139 (136-145) mmol/L Potassium 4.9 (3.3-5.3) mmol/L Chloride 102 (98-115) mmol/L Carbon Dioxide 27.3 (21.0-32.0) mmol/L Anion Gap 14.6 (5-15) mmol/L BUN 18 (6-25) mg/dL Creatinine 1.42 H (0.51-1.17) mg/dL Est Cr Clr Drug Dosing 39.31 mL/min Estimated GFR (MDRD) 48 mL/min Glucose 117 H (75 - 99) mg/dL Calcium 8.9 (8.7-10.3) mg/dL Total Bilirubin 0.4 (0.2-1.0) mg/dL AST 20 (15-37) U/L ALT 30 (12-78) U/L Alkaline Phosphatase 104 (46-116) IU/L Creatine Kinase 92 (26-276) U/L CK-MB (CK-2) 1.50 (0.00-4.30) ng/mL Troponin I < 0.04 (0.00-0.070) ng/mL Total Protein 7.5 (6.4-8.2) g/dL Albumin 3.58 (3.00-4.80) g/dL Meds: Medications Generic Name Dose Route Start Last Admin Trade Name Freq PRN Reason Stop Dose Admin Sodium Chloride 10 ml 10/06/18 20:44 Saline Flush FLUSH Q8HR PRN keep vein open - Radiology Interpretation Free Text/Narrative:: CXR- NAD Departure - Departure Time of Disposition: 21:46 Disposition: Refer to Observation Condition: Fair Clinical Impression: Generalized weakness, Orthostatic hypotension - Discharge Information Referrals: Lupe Burch MD [Primary Care Provider] - Forms: ED Department Discharge - My Orders Last 24 Hours: My Active Orders 10/06/18 20:15 EKG 12 Lead [EK] Routine 10/06/18 20:42 EKG Documentation Completion [RC] ASDIRECTED 10/06/18 20:43 Chest 2V [CR] Stat UA W/MICROSCOPIC [URIN] Stat 10/06/18 20:44 Orthostatic Vital Signs [RC] ASDIRECTED Peripheral IV Care [RC] . DIRECTED Sodium Chloride 0.9% [Saline Flush] 10 ml FLUSH Q8HR PRN Peripheral IV Insertion Adult [OM.PC] Routine - Assessment/Plan Last 24 Hours: My Active Orders 10/06/18 20:15 EKG 12 Lead [EK] Routine 10/06/18 20:42 EKG Documentation Completion [RC] ASDIRECTED 10/06/18 20:43 Chest 2V [CR] Stat UA W/MICROSCOPIC [URIN] Stat 10/06/18 20:44 Orthostatic Vital Signs [RC] ASDIRECTED Peripheral IV Care [RC] . DIRECTED Sodium Chloride 0.9% [Saline Flush] 10 ml FLUSH Q8HR PRN Peripheral IV Insertion Adult [OM.PC] Routine Assessment:: 1. generalized weakness 2. orthostatic hypotension Plan: 1. admit to medicine- Dr Babcock- obs 2. gentle fluid hydration- NS@75cc/hr-500 bolus 3. PT consult 4. social service consult 5. supportive care
[2018-10-06 21:31] LABS: ANION GAP 14.6 mmol/L (5-15); CHLORIDE,CL 102 mmol/L (98-115); SODIUM,NA 139 mmol/L (136-145)
[2018-10-06] MEDS ORDERED: Gabapentin 300 MG Cap PO ONE (21:53)
[2018-10-06] MEDS ORDERED: Warfarin 5 MG Tab PO ONE (21:58)
[2018-10-06] MEDS ORDERED: Sodium Chloride 0.9% 500 ML IV SCH (22:00)
[2018-10-07 06:55] VITALS: BP 119/67
--- NOTE | 2018-10-07 13:28 | PCM.DCSUM1 ---
Discharge Summary - Hospital Course Free Text/Narrative:: Ed is being discharged from an observation stay 10/06/18 - 10/07/18 for bilateral lower extremity weakness. He has had this happen before and required NH stay with therapy. He had been in his usual state of health until last evening after supper when he went to the bathroom and "all of a sudden my legs were weak ". He had used his walker to ambulate to the bathroom and was at the sink hanging on and then was able to transfer to the toilet with the help of his . He then left the bathroom using this walker and made it a short distance to a chair but was unable to stand. His was unable to help him and so called EMS and he was transported to the ER with ambulance for evaluation. VSS but orthostatics from sitting to standing had a blood pressure from from 118 /54 to 110/51. BG was normal (he has a hx of diabetes and is on oral medication and insulin). Labs largely unremarkable with the exception of a slight rise in his creatinine to 1.4. He had no focal neuro deficits, CT was not indicated. He was admitted for IVF's , labs and PT consult as well as clinical social work aide consult. He was able to walk today per his report. PT is not available at the time of this document to report their findings. He feels stronger. He is ready to go home. This is the order and face to face encounter for home health services to include : Nursing, PT, OT. The clinical findings to support the need for home health include potential for re-hospitalization related to weakness, to develop an in home therapy program for strengthening and balance, and an in home safety assessment. He is home bound due to decreased strength and endurance due to muscle weakness, has SOB with minimal activities secondary to his COPD and oxygen dependence as well as having an unsteady gait. Discharge Diagnoses: Weakness. Improved Of note, he had a BG Of 54 and had orange juice to improve this in the middle of the night. He has not had any problems with low BG at home with AM BG's around 100 up to as high as 125 and a low of 74 isolated in the AM several weeks ago but his admits he takes his insulin at bedtime and then often doesn't get out of bed to eat until 11:30AM or even noon. It was emphasized to Ed that he needs to be up and ready to have breakfast by 10AM At the latest or he may need dose adjustment in his insulin. Diagnosis: Stroke: No Modified [employer] Scale: No Signif.Disability Despite Sympt.Able to Carry Out Usual Act./Duties Modified [employer] Scale Score: 1 - Discharge Data Discharge Date: 10/07/18 Discharge Disposition: Home, W Home Health Agency 06 Condition: Fair - Patient Summary/Data Consults: Consultations 10/06/18 21:49 Consult to Case Management/Security Incident Handler [CONS] Routine PT Evaluation and Treatment [CONS] Routine - Patient Instructions Diet: Diabetic Diet Activity: As Tolerated - Discharge Plan *PRESCRIPTION DRUG MONITORING PROGRAM REVIEWED*: Not Applicable *COPY OF PRESCRIPTION DRUG MONITORING REPORT IN PATIENT JARRELL: Not Applicable Home Medications: Home Meds Omeprazole [Prilosec] 40 mg PO DAILY 11/10/13 [History] atorvaSTATin [Lipitor] 10 mg PO BEDTIME 03/22/15 [History] Fluticasone Propionate [Flonase] 2 sprays NASBOTH DAILY PRN 03/29/16 [History] Furosemide [Lasix] 40 mg PO DAILY 03/29/16 [History] Lactobacillus Acidophilus [Probiotic] 1 cap PO BID 03/29/16 [History] Tamsulosin HCl [Flomax] 0.4 mg PO BEDTIME 03/29/16 [History] Warfarin Dosing [Coumadin Ask] 7.5 mg PO DAILY 03/29/16 [History] buPROPion [Wellbutrin XL] 150 mg PO DAILY 08/26/16 [History] Aspirin [Halfprin] 81 mg PO DAILY 01/10/17 [History] Metoprolol Succinate [Toprol XL] 200 mg PO DAILY 01/10/17 [History] metFORMIN HCl [Metformin HCl] 500 mg PO BIDMEALS 02/21/17 [History] Docusate Sodium [Colace] 200 mg PO DAILY PRN 02/07/18 [History] Gabapentin [Neurontin] 300 mg PO BID 02/07/18 [History] Insulin Glarg,Human.Rec.Analog [Lantus Solostar] 11 unit SQ BEDTIME 02/07/18 [ History] Albuterol Sulfate [Proair Hfa] 2 inhaler IH Q6H PRN 03/21/18 [History] Budesonide [Pulmicort] 2 ml INH BID 10/07/18 [History] Ipratropium/Albuterol Sulfate [Iprat-Albut 0.5-3(2.5) MG/3 ML] 3 ml INH Q4H PRN 10/07/18 [History] Loratadine 10 mg PO DAILY PRN 10/07/18 [History] Losartan Potassium 50 mg PO DAILY 10/07/18 [History] SitaGLIPtin [Januvia] 25 mg PO BID 10/07/18 [History] Warfarin Sodium 10 mg PO DAILY 10/07/18 [History] Referrals: Lupe Burch MD [Primary Care Provider] - - Discharge Summary/Plan Comment DC Time >30 min.: No - General Info Date of Service: 10/07/18 - Patient Data Vitals - Most Recent: Last Vital Signs Temp 97.2 F 10/07/18 06:54 Pulse 64 10/07/18 06:54 Resp 18 10/07/18 06:54 BP 119/67 10/07/18 06:54 Pulse Ox 98 10/07/18 06:54 Orthostatic Blood Pressure [ 100/51 Standing] Orthostatic Blood Pressure [ 118/54 Sitting] Orthostatic Blood Pressure [ 112/46 Supine] Weight - Most Recent: 164 lb I&O - Last 24 hours: Intake & Output 10/06/18 10/07/18 10/07/18 22:59 06:59 14:59 Intake Total 150 Output Total 800 Balance -650 Lab Results - Last 24 hrs: Laboratory Results - last 24 hr 10/06/18 10/06/18 10/06/18 Range/Units 20:00 20:00 21:35 WBC 7.55 (5.00-10.00) 10^3/uL RBC 3.84 L (4.50-6.00) 10^6/uL Hgb 11.7 L (13.0-17.0) g/dL Hct 35.6 L (40.0-52.0) % MCV 92.7 H (82.0-92.0) fL MCH 30.5 (27.0-31.0) pg MCHC 32.9 (32.0-36.0) g/dL RDW 16.2 H (11.5-14.5) % Plt Count 219 D (150-400) 10^3/uL MPV 8.5 (7.4-10.4) fL Immature Gran % (Auto) 0.4 (0.0-5.0) % Neut % (Auto) 58.8 (50.0-70.0) % Lymph % (Auto) 29.7 (20.0-40.0) % Power % (Auto) 9.5 H (2.0-8.0) % Eos % (Auto) 1.3 (1.0-3.0) % Baso % (Auto) 0.3 (0.0-1.0) % Immature Gran # (Auto) 0.03 (0.00-0.50) 10^3/uL Neut # (Auto) 4.44 (2.50-7.00) 10^3/uL Lymph # (Auto) 2.24 (1.00-4.00) 10^3/uL Power # (Auto) 0.72 (0.10-0.80) 10^3/uL Eos # (Auto) 0.10 (0.10-0.30) 10^3/uL Baso # (Auto) 0.02 (0.00-0.10) 10^3/uL PT INR (0.9-1.1) Sodium 139 (136-145) mmol/L Potassium 4.9 (3.3-5.3) mmol/L Chloride 102 (98-115) mmol/L Carbon Dioxide 27.3 (21.0-32.0) mmol/L Anion Gap 14.6 (5-15) mmol/L BUN 18 (6-25) mg/dL Creatinine 1.42 H (0.51-1.17) mg/dL Est Cr Clr Drug Dosing 39.31 mL/min Estimated GFR (MDRD) 48 mL/min Glucose 117 H (75 - 99) mg/dL POC Glucose (74-106) mg/dl Calcium 8.9 (8.7-10.3) mg/dL Total Bilirubin 0.4 (0.2-1.0) mg/dL AST 20 (15-37) U/L ALT 30 (12-78) U/L Alkaline Phosphatase 104 (46-116) IU/L Creatine Kinase 92 (26-276) U/L CK-MB (CK-2) 1.50 (0.00-4.30) ng/mL Troponin I < 0.04 (0.00-0.070) ng/mL Total Protein 7.5 (6.4-8.2) g/dL Albumin 3.58 (3.00-4.80) g/dL Specimen Type Urinvoid Urine Color Yellow (YELLOW) Urine Appearance Clear (CLEAR) Urine pH 5.5 (5.0-9.0) Ur Specific [place] 1.015 (1.005-1.030) Urine Protein Negative (NEGATIVE) mg/dL Urine Glucose (UA) Negative (NEGATIVE) mg/dL Urine Ketones Negative (NEGATIVE) mg/dL Urine Occult Blood Trace-intact H (NEGATIVE) Urine Nitrite Negative (NEGATIVE) Urine Bilirubin Negative (NEGATIVE) Urine Urobilinogen 0.2 (0.2-1.0) E.U./dL Ur Leukocyte Esterase Negative (NEGATIVE) Urine RBC 0-5 (0-5) /HPF Urine WBC 0-5 (0-5) /HPF Ur Epithelial Cells Few /LPF Urine Bacteria Not seen (NONE TO FEW) /HPF 10/06/18 10/07/18 10/07/18 Range/Units 22:08 08:08 12:14 WBC (5.00-10.00) 10^3/uL RBC (4.50-6.00) 10^6/uL Hgb (13.0-17.0) g/dL Hct (40.0-52.0) % MCV (82.0-92.0) fL MCH (27.0-31.0) pg MCHC (32.0-36.0) g/dL RDW (11.5-14.5) % Plt Count (150-400) 10^3/uL MPV (7.4-10.4) fL Immature Gran % (Auto) (0.0-5.0) % Neut % (Auto) (50.0-70.0) % Lymph % (Auto) (20.0-40.0) % Power % (Auto) (2.0-8.0) % Eos % (Auto) (1.0-3.0) % Baso % (Auto) (0.0-1.0) % Immature Gran # (Auto) (0.00-0.50) 10^3/uL Neut # (Auto) (2.50-7.00) 10^3/uL Lymph # (Auto) (1.00-4.00) 10^3/uL Power # (Auto) (0.10-0.80) 10^3/uL Eos # (Auto) (0.10-0.30) 10^3/uL Baso # (Auto) (0.00-0.10) 10^3/uL PT TNP INR 2.7 H (0.9-1.1) Sodium (136-145) mmol/L Potassium (3.3-5.3) mmol/L Chloride (98-115) mmol/L Carbon Dioxide (21.0-32.0) mmol/L Anion Gap (5-15) mmol/L BUN (6-25) mg/dL Creatinine (0.51-1.17) mg/dL Est Cr Clr Drug Dosing mL/min Estimated GFR (MDRD) mL/min Glucose (75 - 99) mg/dL POC Glucose 54 L 153 H (74-106) mg/dl Calcium (8.7-10.3) mg/dL Total Bilirubin (0.2-1.0) mg/dL AST (15-37) U/L ALT (12-78) U/L Alkaline Phosphatase (46-116) IU/L Creatine Kinase (26-276) U/L CK-MB (CK-2) (0.00-4.30) ng/mL Troponin I (0.00-0.070) ng/mL Total Protein (6.4-8.2) g/dL Albumin (3.00-4.80) g/dL Specimen Type Urine Color (YELLOW) Urine Appearance (CLEAR) Urine pH (5.0-9.0) Ur Specific [place] (1.005-1.030) Urine Protein (NEGATIVE) mg/dL Urine Glucose (UA) (NEGATIVE) mg/dL Urine Ketones (NEGATIVE) mg/dL Urine Occult Blood (NEGATIVE) Urine Nitrite (NEGATIVE) Urine Bilirubin (NEGATIVE) Urine Urobilinogen (0.2-1.0) E.U./dL Ur Leukocyte Esterase (NEGATIVE) Urine RBC (0-5) /HPF Urine WBC (0-5) /HPF Ur Epithelial Cells /LPF Urine Bacteria (NONE TO FEW) /HPF Med Orders - Current: Current Medications Sodium Chloride (Normal Saline) 500 mls @ 100 mls/hr IV ASDIRECTED EDOUARD Last Admin: 10/07/18 10:39 Dose: 100 mls/hr Sodium Chloride (Saline Flush) 10 ml FLUSH Q8HR PRN PRN Reason: keep vein open Discontinued Medications Gabapentin (Neurontin) 300 mg PO ONETIME ONE Stop: 10/06/18 21:54 Last Admin: 10/06/18 23:05 Dose: 300 mg Sodium Chloride (Saline Flush) 10 ml FLUSH Q8HR PRN PRN Reason: keep vein open Warfarin Sodium (Coumadin) 7.5 mg PO ONETIME ONE Stop: 10/06/18 21:59 Last Admin: 10/06/18 23:05 Dose: 7.5 mg - Exam Quality Assessment: Reports: Supplemental Oxygen General: Reports: Alert, Oriented, Cooperative, No Acute Distress Lungs: Reports: Clear to Auscultation, Normal Respiratory Effort Cardiovascular: Reports: No Murmurs, Irregular Rhythm GI/Abdominal Exam: Normal Bowel Sounds
== END 2018-10-07 15:09 | disposition home health service (06) ==
LOC: KA.ED 20:05 → KA.MS 21:49
PROVIDERS: ADMIT Physician Assistant Medical; ATTEND Internal Medicine
DX: R53.1 Weakness (principal); R26.81 Unsteadiness on feet; I95.1 Orthostatic hypotension; I11.0 Hypertensive heart disease with heart failure; I50.9 Heart failure, unspecified; I25.10 Atherosclerotic heart disease of native coronary artery without angina pectoris; I48.91 Unspecified atrial fibrillation; E11.42 Type 2 diabetes mellitus with diabetic polyneuropathy; E78.00 Pure hypercholesterolemia, unspecified; J44.9 Chronic obstructive pulmonary disease, unspecified; Z88.8 Allergy status to other drugs, medicaments and biological substances; Z99.81 Dependence on supplemental oxygen; Z95.1 Presence of aortocoronary bypass graft; Z79.01 Long term (current) use of anticoagulants; Z79.82 Long term (current) use of aspirin; Z79.4 Long term (current) use of insulin; Z79.899 Other long term (current) drug therapy
CPT/HCPCS: 36416; 71046; 80053; 81001; 82550; 82553; 82962; 84484; 85025; 85610; 93005; 97161; 99285; A9270; G0378; J7040

== ENCOUNTER 2019-04-06 13:22 | Inpatient (IN) | payer MEDICARE, MEDICAID ==
[2019-04-06] MEDS ORDERED: Sodium Chloride 0.9% 10 ML Syringe FLUSH PRN (13:24)
--- NOTE | 2019-04-06 13:29 | EDM.PDOC ---
ED HPI GENERAL MEDICAL PROBLEM - General Chief Complaint: Respiratory Problem Stated Complaint: TROUBLE BREATHING? Time Seen by Provider: 04/06/19 13:26 Source of Information: Reports: Patient, Family History Limitations: Reports: No Limitations - History of Present Illness INITIAL COMMENTS - FREE TEXT/NARRATIVE: 78 YO WM presents to ER complaining of progressive shortness of breath x 2 days. Pt with PMH significant for COPD, A fib, CHF and CAD who states he has been feeling more fatigued over the last 2 days with increased shortness of breath. Pt was seen at eye doctor today and appears to be tachypneic. Pt denies chest pain, fever/chills, no cough but has mild congestion. Pt is O2 dependant on 2L NC. Pt is alert and oriented x 3. Duration: Day(s): (2) Location: Reports: Chest, Generalized Severity: Mild Improves with: Reports: Rest Worsens with: Reports: Breathing Associated Symptoms: Reports: No Other Symptoms, Shortness of Breath, Weakness. Denies: Chest Pain, Cough, Diaphoresis, Fever/Chills, Nausea/Vomiting, Rash, Seizure - Related Data Allergies Allergy/AdvReac Type Severity Reaction Status Date / Time lisinopril Allergy Rash Verified 04/06/19 13:31 Home Meds: Home Meds Omeprazole [Prilosec] 40 mg PO DAILY 11/10/13 [History] atorvaSTATin [Lipitor] 10 mg PO BEDTIME 03/22/15 [History] Fluticasone Propionate [Flonase] 2 sprays NASBOTH DAILY PRN 03/29/16 [History] Furosemide [Lasix] 40 mg PO DAILY 03/29/16 [History] Lactobacillus Acidophilus [Probiotic] 1 cap PO BID 03/29/16 [History] Tamsulosin HCl [Flomax] 0.4 mg PO BEDTIME 03/29/16 [History] Warfarin Dosing [Coumadin Ask] 7.5 mg PO DAILY 03/29/16 [History] buPROPion [Wellbutrin XL] 150 mg PO DAILY 08/26/16 [History] Aspirin [Halfprin] 81 mg PO DAILY 01/10/17 [History] Metoprolol Succinate [Toprol XL] 200 mg PO DAILY 01/10/17 [History] metFORMIN HCl [Metformin HCl] 500 mg PO BIDMEALS 02/21/17 [History] Docusate Sodium [Colace] 200 mg PO DAILY PRN 02/07/18 [History] Gabapentin [Neurontin] 300 mg PO BID 02/07/18 [History] Insulin Glarg,Human.Rec.Analog [Lantus Solostar] 11 unit SQ BEDTIME 02/07/18 [ History] Albuterol Sulfate [Proair Hfa] 2 inhaler IH Q6H PRN 03/21/18 [History] Budesonide [Pulmicort] 2 ml INH BID 10/07/18 [History] Ipratropium/Albuterol Sulfate [Iprat-Albut 0.5-3(2.5) MG/3 ML] 3 ml INH Q4H PRN 10/07/18 [History] Loratadine 10 mg PO DAILY PRN 10/07/18 [History] Losartan Potassium 50 mg PO DAILY 10/07/18 [History] SitaGLIPtin [Januvia] 25 mg PO BID 10/07/18 [History] Warfarin Sodium 10 mg PO DAILY 10/07/18 [History] Past Medical History HEENT History: Reports: Hard of Hearing, Impaired Vision, Other (See Below) Other HEENT History: rhinitis Cardiovascular History: Reports: Afib, Bypass, CAD, Heart Failure, High Cholesterol, Hypertension, SOB on Exertion, Other (See Below) Other Cardiovascular History: Fluid build up in lungs-heart surgery Respiratory History: Reports: COPD, Sleep Apnea Other Respiratory History: O2 - continues Gastrointestinal History: Reports: Chronic Constipation, Chronic Diarrhea, GERD Genitourinary History: Reports: Diabetic Nephropathy, Other (See Below) Other Genitourinary History: prostate swelling Musculoskeletal History: Reports: Back Pain, Chronic, Fracture, Other (See Below ) Other Musculoskeletal History: right ankle fx. 2019 Neurological History: Reports: None Other Neuro History: CVA vs TIA - 14 years ago Psychiatric History: Reports: Depression Endocrine/Metabolic History: Reports: Diabetes, Type II, Vitamin D Deficiency - Infectious Disease History Infectious Disease History: Reports: Chicken Pox, Shingles - Past Surgical History Head Surgeries/Procedures: Reports: None Other HEENT Surgeries/Procedures: suture to eyelid Cardiovascular Surgical History: Reports: Coronary Artery Bypass, Vascular Surgery GI Surgical History: Reports: Colonoscopy, Hernia, Inguinal Male Surgical History: Reports: None Endocrine Surgical History: Reports: None Social & Family History - Family History Family Medical History: Noncontributory - Caffeine Use Caffeine Use: Reports: Coffee, Soda ED ROS GENERAL - Review of Systems Review Of Systems: See Below Constitutional: Reports: Weakness HEENT: Reports: No Symptoms Respiratory: Reports: Shortness of Breath, Wheezing Cardiovascular: Reports: No Symptoms Endocrine: Reports: No Symptoms GI/Abdominal: Reports: No Symptoms : Reports: No Symptoms Musculoskeletal: Reports: No Symptoms Skin: Reports: No Symptoms Neurological: Reports: No Symptoms Psychiatric: Reports: No Symptoms Hematologic/Lymphatic: Reports: No Symptoms Immunologic: Reports: No Symptoms ED EXAM, GENERAL - Physical Exam Exam: See Below Exam Limited By: No Limitations General Appearance: Alert, WD/WN, No Apparent Distress Nose: Normal Inspection, Normal Mucosa, No Blood Throat/Mouth: Normal Inspection, Normal Lips, Normal Teeth, Normal Gums, Normal Oropharynx, Normal Voice, No Airway Compromise Head: Atraumatic, Normocephalic Neck: Normal Inspection, Supple, Non-Tender, Full Range of Motion Respiratory/Chest: No Respiratory Distress, Wheezing, Accessory Muscle Use. No : Stridor, Retractions, Splinting Cardiovascular: Normal Peripheral Pulses, Regular Rate, Rhythm, No Edema, No Gallop, No JVD, No Murmur, No Rub GI/Abdominal: Normal Bowel Sounds, Soft, Non-Tender, No Organomegaly, No Distention, No Abnormal Bruit, No Mass Back Exam: Normal Inspection, Full Range of Motion, NT Extremities: Normal Inspection, Normal Range of Motion, Non-Tender, Normal Capillary Refill, No Pedal Edema Neurological: Alert, Oriented, CN II-XII Intact, Normal Cognition, Normal Gait, Normal Reflexes, No Motor/Sensory Deficits Psychiatric: Normal Affect, Normal Mood Skin Exam: Warm, Dry, Intact, Normal Color, No Rash Lymphatic: No Adenopathy EKG INTERPRETATION EKG Date: 04/06/19 Time: 13:33 Rhythm: A-Fib Rate (Beats/Min): 86 [place]: Normal P-Wave: Absent QRS: Normal ST-T: Normal QT: Normal Course - Vital Signs Last Recorded V/S: Last Vital Signs Temp 36.5 C 04/06/19 13:31 Pulse 85 04/06/19 13:31 Resp 24 H 04/06/19 13:31 BP 128/77 04/06/19 13:31 Pulse Ox 80 L 04/06/19 13:31 - Orders/Labs/Meds Orders: Active Orders 24 hr Category Date Time Status EKG Documentation Completion [RC] ASDIRECTED Care 04/06/19 13:25 Active Peripheral IV Care [RC] . DIRECTED Care 04/06/19 13:25 Active RT Aerosol Therapy [RC] ASDIRECTED Care 04/06/19 13:51 Active INFLUENZA A+B AG SCREEN [RM] Stat Lab 04/06/19 13:24 Ordered Sodium Chloride 0.9% [Saline Flush] Med 04/06/19 13:24 Active 10 ml FLUSH Q8HR PRN Peripheral IV Insertion Adult [OM.PC] Routine Oth 04/06/19 13:24 Ordered EKG 12 Lead [EK] Routine Ther 04/06/19 13:24 Ordered Medication Orders Sodium Chloride (Saline Flush) 10 ml FLUSH Q8HR PRN PRN Reason: keep vein open Labs: Laboratory Tests 04/06/19 04/06/19 04/06/19 Range/Units 13:44 13:44 13:44 WBC 10.21 H (5.00-10.00) 10^3/uL RBC 3.57 L (4.50-6.00) 10^6/uL Hgb 10.1 L (13.0-17.0) g/dL Hct 31.7 L (40.0-52.0) % MCV 88.8 (82.0-92.0) fL MCH 28.3 (27.0-31.0) pg MCHC 31.9 L (32.0-36.0) g/dL RDW 18.3 H (11.5-14.5) % Plt Count 268 (150-400) 10^3/uL MPV 8.3 (7.4-10.4) fL Immature Gran % (Auto) 0.3 (0.0-5.0) % Neut % (Auto) 75.1 H (50.0-70.0) % Lymph % (Auto) 14.7 L (20.0-40.0) % [place] % (Auto) 8.1 H (2.0-8.0) % Eos % (Auto) 1.3 (1.0-3.0) % Baso % (Auto) 0.5 (0.0-1.0) % Immature Gran # (Auto) 0.03 (0.00-0.50) 10^3/uL Neut # (Auto) 7.67 H (2.50-7.00) 10^3/uL Lymph # (Auto) 1.50 (1.00-4.00) 10^3/uL [place] # (Auto) 0.83 H (0.10-0.80) 10^3/uL Eos # (Auto) 0.13 (0.10-0.30) 10^3/uL Baso # (Auto) 0.05 (0.00-0.10) 10^3/uL PT 45.0 H D (8.9-11.4) SEC INR 4.6 H* (0.9-1.1) APTT 45.4 H (23.1-31.3) SEC Sodium 138 (136-145) mmol/L Potassium 4.0 (3.3-5.3) mmol/L Chloride 99 (98-115) mmol/L Carbon Dioxide 26.1 (21.0-32.0) mmol/L Anion Gap 16.9 H (5-15) mmol/L BUN 17 (6-25) mg/dL Creatinine 0.85 (0.51-1.17) mg/dL Est Cr Clr Drug Dosing 64.63 mL/min Estimated GFR (MDRD) > 60 mL/min Glucose 133 H (75 - 99) mg/dL Calcium 8.5 L (8.7-10.3) mg/dL Total Bilirubin 0.9 (0.2-1.0) mg/dL AST 21 (15-37) U/L ALT 15 (12-78) U/L Alkaline Phosphatase 91 (46-116) IU/L Creatine Kinase 336 H* (26-276) U/L CK-MB (CK-2) 3.90 (0.00-4.30) ng/mL Troponin I 0.04 (0.00-0.070) ng/mL B-Natriuretic Peptide 1180 H (0-100) pg/mL Total Protein 7.6 (6.4-8.2) g/dL Albumin 2.74 L (3.00-4.80) g/dL Meds: Medications Generic Name Dose Route Start Last Admin Trade Name Freq PRN Reason Stop Dose Admin Sodium Chloride 10 ml 04/06/19 13:24 Saline Flush FLUSH Q8HR PRN keep vein open Discontinued Medications Generic Name Dose Route Start Last Admin Trade Name Harshq PRN Reason Stop Dose Admin Albuterol/Ipratropium 3 ml 04/06/19 13:51 04/06/19 14:05 Duoneb 3.0-0.5 Mg/3 Ml NEB 04/06/19 13:52 3 ml ONETIME ONE Administration Albuterol/Ipratropium Confirm 04/06/19 13:47 04/06/19 14:05 Duoneb 3.0-0.5 Mg/3 Ml Administered 04/06/19 13:48 Not Given Dose 3 ml .ROUTE .STK-MED ONE Furosemide 40 mg 04/06/19 14:26 04/06/19 14:32 Lasix IVPUSH 04/06/19 14:27 40 mg NOW ONE Administration Furosemide Confirm 04/06/19 14:23 04/06/19 14:32 Lasix Administered 04/06/19 14:24 Not Given Dose 40 mg .ROUTE .STK-MED ONE Furosemide 80 mg 04/06/19 14:30 Lasix IVPUSH 04/06/19 14:31 NOW ONE Nitroglycerin 1 gm 04/06/19 14:30 Nitro-Bid 2% TOP 04/06/19 14:31 ONETIME ONE - Radiology Interpretation Free Text/Narrative:: CXR- moderate pulmonary edema - Re-Assessments/Exams Free Text/Narrative Re-Assessment/Exam: 04/06/19 14:[address] Babcock who agreed with lasix 80mg IV now then lasix 40mg IV bid and repeat labs in am. Pt does well with lasix diuresis in the past. Departure - Departure Time of Disposition: 14:46 Disposition: Admitted As Inpatient 66 Condition: Fair Clinical Impression: Congenital heart disease in adult CHF exacerbation Qualifiers: Heart failure type: unspecified Qualified Code(s): I50.9 - Heart failure, unspecified - Discharge Information Referrals: Lupe Burch MD [Primary Care Provider] - Forms: ED Department Discharge Sepsis Event Note - Focused Exam Vital Signs: Vital Signs Temp Pulse Resp BP Pulse Ox 04/06/19 13:31 36.5 C 85 24 H 128/77 80 L Date Exam was Performed: 02/20/20 Time Exam was Performed: 14:45 - My Orders Last 24 Hours: My Active Orders 04/06/19 13:24 INFLUENZA A+B AG SCREEN [RM] Stat Sodium Chloride 0.9% [Saline Flush] 10 ml FLUSH Q8HR PRN Peripheral IV Insertion Adult [OM.PC] Routine EKG 12 Lead [EK] Routine 04/06/19 13:25 EKG Documentation Completion [RC] ASDIRECTED Peripheral IV Care [RC] . DIRECTED 04/06/19 13:51 RT Aerosol Therapy [RC] ASDIRECTED - Assessment/Plan Admission H&P: Please use this note as an admission H&P Last 24 Hours: My Active Orders 04/06/19 13:24 INFLUENZA A+B AG SCREEN [RM] Stat Sodium Chloride 0.9% [Saline Flush] 10 ml FLUSH Q8HR PRN Peripheral IV Insertion Adult [OM.PC] Routine EKG 12 Lead [EK] Routine 04/06/19 13:25 EKG Documentation Completion [RC] ASDIRECTED Peripheral IV Care [RC] . DIRECTED 04/06/19 13:51 RT Aerosol Therapy [RC] ASDIRECTED Assessment:: 1. CHF exacerbation 2. elevated INR-4.6 Plan: 1. Admit to medicine- Dr Babcock- 2. lasix 40mg IV bid 3. supportive care
[2019-04-06] MEDS ORDERED: Albuterol/Ipratropium 3.0-0.5 MG/3 ML Neb Soln ONE (13:47)
[2019-04-06] MEDS ORDERED: Albuterol/Ipratropium 3.0-0.5 MG/3 ML Neb Soln NEB ONE (13:51)
[2019-04-06] MEDS ORDERED: Furosemide 40 MG/4 ML VIAL ONE (14:23)
[2019-04-06 14:24] LABS: ANION GAP 16.9 mmol/L (5-15); CHLORIDE,CL 99 mmol/L (98-115); SODIUM,NA 138 mmol/L (136-145)
[2019-04-06] MEDS ORDERED: Furosemide 40 MG/4 ML VIAL IVPUSH ONE ×3 (14:26→15:12)
[2019-04-06] MEDS ORDERED: Nitroglycerin 2% Oint 1 GM UD Packet TOP ONE (14:30)
--- NOTE | 2019-04-06 14:33 | CR ---
[id number] RAD/RAD Chest PA And Lateral EXAM: FRONTAL AND LATERAL CHEST INDICATION: SHORTNESS OF BREATH. COMPARISON: October 06, 2018. DISCUSSION: Stable cardiomegaly. Interval development of moderate interstitial and mild airspace edema compatible with congestive heart failure. Development of small bilateral effusions. Underlying chronic obstructive pulmonary disease is suggested. Prior sternotomy. IMPRESSION: 1. Moderate congestive heart failure. Nam Butcher MD 04/06/19 [id number] Thank you for allowing us to participate in the care of your patient.
[2019-04-06] MEDS ORDERED: Albuterol/Ipratropium 3.0-0.5 MG/3 ML Neb Soln NEB PRN (14:48)
[2019-04-06] MEDS ORDERED: Acetaminophen 650 MG Tab.ER PO PRN (19:18)
[2019-04-06] MEDS ORDERED: Albuterol 8 GM Inhaler INH PRN (19:18)
[2019-04-06] MEDS ORDERED: Docusate Sodium 100 MG Cap PO PRN (19:18)
[2019-04-06] MEDS ORDERED: Fluticasone Propionate Nasal Spray 16 GM Bottle NASBOTH PRN (19:18)
[2019-04-06] MEDS ORDERED: Furosemide 40 MG Tab PO PRN (19:18)
[2019-04-06] MEDS ORDERED: Loratadine 10 MG Tab PO PRN (19:18)
[2019-04-06] MEDS ORDERED: Melatonin 3 MG Tab PO PRN (22:15)
[2019-04-06] MEDS: Insulin Glargine,Human Rec. Analog 100 Units/ML 3 ML Pen SUBCUT SCH (22:27)
[2019-04-06] MEDS: Furosemide 40 MG/4 ML VIAL IVPUSH SCH (22:29)
[2019-04-06] MEDS: Tamsulosin 0.4 MG Cap.ER PO SCH (22:33)
[2019-04-06] MEDS: Gabapentin 300 MG Cap PO SCH (22:34)
[2019-04-06] MEDS: atorvaSTATin 10 MG Tab PO SCH (22:34)
[2019-04-06] MEDS: Budesonide 0.5 MG/2 ML Neb Susp INH SCH (22:36)
[2019-04-07] MEDS: Omeprazole 20 MG Cap.CR PO SCH (07:36)
[2019-04-07] MEDS: Budesonide 0.5 MG/2 ML Neb Susp INH SCH ×2 (07:39→20:09)
[2019-04-07 08:14] LABS: ANION GAP 13.8 mmol/L (5-15); CHLORIDE,CL 101 mmol/L (98-115); SODIUM,NA 142 mmol/L (136-145)
[2019-04-07] MEDS: buPROPion 150 MG Tab.ER PO SCH (08:44)
[2019-04-07] MEDS: B.Bifidum/B.Longum/L.Acidophilus/L.Rhamnosus (Probiotic) Cap PO SCH (08:44)
[2019-04-07] MEDS: Metoprolol Succinate 50 MG Tab.ER PO SCH (08:44)
[2019-04-07] MEDS: Fish Oil/Omega-3 Fatty Acids 1 Gm Cap PO SCH (08:44)
[2019-04-07] MEDS: Aspirin 81 MG Tab.EC PO SCH (08:44)
[2019-04-07] MEDS: Cholecalciferol (Vitamin D3) 25 MCG Tab PO SCH (08:44)
[2019-04-07] MEDS: Losartan 50 MG Tab PO SCH (08:44)
[2019-04-07] MEDS: Gabapentin 300 MG Cap PO SCH ×2 (08:44→20:10)
[2019-04-07] MEDS: glipiZIDE 5 MG Tab PO SCH ×2 (08:44→17:53)
[2019-04-07] MEDS: Cyanocobalamin (Vitamin B12) 500 MCG Tab PO SCH (08:44)
[2019-04-07] MEDS: Calcium Citrate/Vitamin D3 315 MG-250 Unit Tab PO SCH ×2 (08:44→20:10)
[2019-04-07] MEDS: Donepezil 10 MG Tab PO SCH (08:44)
[2019-04-07] MEDS: metFORMIN 500 MG Tab PO SCH ×2 (08:44→17:52)
[2019-04-07] MEDS: Furosemide 20 MG Tab PO SCH (08:51)
[2019-04-07] MEDS: Furosemide 40 MG/4 ML VIAL IVPUSH SCH ×2 (08:52→20:11)
--- NOTE | 2019-04-07 09:03 | PCM.PN ---
- General Info Date of Service: 04/07/19 Admission Dx/Problem (Free Text): CHF exacerbation - Review of Systems Systems Review Comment:: Ed is seen today on inpatient rounds. He was admitted on 04/06/2019 through the ER. He resides at [facility] and had been at the eye doctor that day and was noted to be tachypneic. The eye doctor told him to present to the ER and so he presented by private vehicle to the ER. He was noted to have O2 sats <90% on 2L. He chronically wears 2L of O2 at baseline due to a hx of COPD. He was also noted to have an elevated BNP and CXR with pulmonary vascular congestion. His weight in the ER was 178 and his baseline weight is 164. He was given lasix 80 mg IV x 1 dose and then started on 40 mg IV BID in addition to his outpatient dose of 40 mg PO daily. A ayala catheter was placed per patient request to minimize trips to the bathroom. His weight is down to 168 this morning. He feels better overall today although is still somewhat more SOB that his baseline. He has been afebrile. He has no ill symptoms. - Patient Data Vitals - Most Recent: Last Vital Signs Temp 96.8 F L 04/07/19 06:24 Pulse 78 04/07/19 08:44 Resp 22 H 04/07/19 06:24 BP 116/60 04/07/19 08:44 Pulse Ox 92 L 04/07/19 07:40 Weight - Most Recent: 169 lb 9 oz I&O - Last 24 Hours: Intake & Output 04/06/19 04/07/19 04/07/19 22:59 06:59 14:59 Intake Total 300 0 Output Total 1200 700 Balance -900 -700 Lab Results Last 24 Hours: Laboratory Results - last 24 hr 04/06/19 04/06/19 04/06/19 Range/Units 13:44 13:44 13:44 WBC 10.21 H (5.00-10.00) 10^3/uL RBC 3.57 L (4.50-6.00) 10^6/uL Hgb 10.1 L (13.0-17.0) g/dL Hct 31.7 L (40.0-52.0) % MCV 88.8 (82.0-92.0) fL MCH 28.3 (27.0-31.0) pg MCHC 31.9 L (32.0-36.0) g/dL RDW 18.3 H (11.5-14.5) % Plt Count 268 (150-400) 10^3/uL MPV 8.3 (7.4-10.4) fL Immature Gran % (Auto) 0.3 (0.0-5.0) % Neut % (Auto) 75.1 H (50.0-70.0) % Lymph % (Auto) 14.7 L (20.0-40.0) % [place] % (Auto) 8.1 H (2.0-8.0) % Eos % (Auto) 1.3 (1.0-3.0) % Baso % (Auto) 0.5 (0.0-1.0) % Immature Gran # (Auto) 0.03 (0.00-0.50) 10^3/uL Neut # (Auto) 7.67 H (2.50-7.00) 10^3/uL Lymph # (Auto) 1.50 (1.00-4.00) 10^3/uL [place] # (Auto) 0.83 H (0.10-0.80) 10^3/uL Eos # (Auto) 0.13 (0.10-0.30) 10^3/uL Baso # (Auto) 0.05 (0.00-0.10) 10^3/uL PT 45.0 H D (8.9-11.4) SEC INR 4.6 H* (0.9-1.1) APTT 45.4 H (23.1-31.3) SEC Sodium 138 (136-145) mmol/L Potassium 4.0 (3.3-5.3) mmol/L Chloride 99 (98-115) mmol/L Carbon Dioxide 26.1 (21.0-32.0) mmol/L Anion Gap 16.9 H (5-15) mmol/L BUN 17 (6-25) mg/dL Creatinine 0.85 (0.51-1.17) mg/dL Est Cr Clr Drug Dosing 64.63 mL/min Estimated GFR (MDRD) > 60 mL/min Glucose 133 H (75 - 99) mg/dL POC Glucose (74-106) mg/dl Calcium 8.5 L (8.7-10.3) mg/dL Total Bilirubin 0.9 (0.2-1.0) mg/dL AST 21 (15-37) U/L ALT 15 (12-78) U/L Alkaline Phosphatase 91 (46-116) IU/L Creatine Kinase 336 H* (26-276) U/L CK-MB (CK-2) 3.90 (0.00-4.30) ng/mL Troponin I 0.04 (0.00-0.070) ng/mL B-Natriuretic Peptide 1180 H (0-100) pg/mL Total Protein 7.6 (6.4-8.2) g/dL Albumin 2.74 L (3.00-4.80) g/dL 04/06/19 04/06/19 04/07/19 Range/Units 14:30 22:25 07:29 WBC 9.07 (5.00-10.00) 10^3/uL RBC 3.32 L (4.50-6.00) 10^6/uL Hgb 9.4 L (13.0-17.0) g/dL Hct 29.5 L (40.0-52.0) % MCV 88.9 (82.0-92.0) fL MCH 28.3 (27.0-31.0) pg MCHC 31.9 L (32.0-36.0) g/dL RDW 18.4 H (11.5-14.5) % Plt Count 268 (150-400) 10^3/uL MPV 8.5 (7.4-10.4) fL Immature Gran % (Auto) 0.2 (0.0-5.0) % Neut % (Auto) 74.3 H (50.0-70.0) % Lymph % (Auto) 12.6 L (20.0-40.0) % [place] % (Auto) 9.2 H (2.0-8.0) % Eos % (Auto) 3.3 H (1.0-3.0) % Baso % (Auto) 0.4 (0.0-1.0) % Immature Gran # (Auto) 0.02 (0.00-0.50) 10^3/uL Neut # (Auto) 6.74 (2.50-7.00) 10^3/uL Lymph # (Auto) 1.14 (1.00-4.00) 10^3/uL [place] # (Auto) 0.83 H (0.10-0.80) 10^3/uL Eos # (Auto) 0.30 (0.10-0.30) 10^3/uL Baso # (Auto) 0.04 (0.00-0.10) 10^3/uL PT (8.9-11.4) SEC INR (0.9-1.1) APTT (23.1-31.3) SEC Sodium (136-145) mmol/L Potassium (3.3-5.3) mmol/L Chloride (98-115) mmol/L Carbon Dioxide (21.0-32.0) mmol/L Anion Gap (5-15) mmol/L BUN (6-25) mg/dL Creatinine (0.51-1.17) mg/dL Est Cr Clr Drug Dosing mL/min Estimated GFR (MDRD) mL/min Glucose (75 - 99) mg/dL POC Glucose 134 H (74-106) mg/dl Calcium (8.7-10.3) mg/dL Total Bilirubin (0.2-1.0) mg/dL AST (15-37) U/L ALT (12-78) U/L Alkaline Phosphatase (46-116) IU/L Creatine Kinase (26-276) U/L CK-MB (CK-2) (0.00-4.30) ng/mL Troponin I (0.00-0.070) ng/mL B-Natriuretic Peptide 1130 H (0-100) pg/mL Total Protein (6.4-8.2) g/dL Albumin (3.00-4.80) g/dL 04/07/19 04/07/19 Range/Units 07:29 07:29 WBC (5.00-10.00) 10^3/uL RBC (4.50-6.00) 10^6/uL Hgb (13.0-17.0) g/dL Hct (40.0-52.0) % MCV (82.0-92.0) fL MCH (27.0-31.0) pg MCHC (32.0-36.0) g/dL RDW (11.5-14.5) % Plt Count (150-400) 10^3/uL MPV (7.4-10.4) fL Immature Gran % (Auto) (0.0-5.0) % Neut % (Auto) (50.0-70.0) % Lymph % (Auto) (20.0-40.0) % [place] % (Auto) (2.0-8.0) % Eos % (Auto) (1.0-3.0) % Baso % (Auto) (0.0-1.0) % Immature Gran # (Auto) (0.00-0.50) 10^3/uL Neut # (Auto) (2.50-7.00) 10^3/uL Lymph # (Auto) (1.00-4.00) 10^3/uL [place] # (Auto) (0.10-0.80) 10^3/uL Eos # (Auto) (0.10-0.30) 10^3/uL Baso # (Auto) (0.00-0.10) 10^3/uL PT 39.4 H (8.9-11.4) SEC INR 4.0 H (0.9-1.1) APTT (23.1-31.3) SEC Sodium 142 (136-145) mmol/L Potassium 3.7 (3.3-5.3) mmol/L Chloride 101 (98-115) mmol/L Carbon Dioxide 30.9 (21.0-32.0) mmol/L Anion Gap 13.8 (5-15) mmol/L BUN 14 (6-25) mg/dL Creatinine 0.77 (0.51-1.17) mg/dL Est Cr Clr Drug Dosing 71.35 mL/min Estimated GFR (MDRD) > 60 mL/min Glucose 93 (75 - 99) mg/dL POC Glucose (74-106) mg/dl Calcium 8.3 L (8.7-10.3) mg/dL Total Bilirubin (0.2-1.0) mg/dL AST (15-37) U/L ALT (12-78) U/L Alkaline Phosphatase (46-116) IU/L Creatine Kinase (26-276) U/L CK-MB (CK-2) (0.00-4.30) ng/mL Troponin I (0.00-0.070) ng/mL B-Natriuretic Peptide (0-100) pg/mL Total Protein (6.4-8.2) g/dL Albumin (3.00-4.80) g/dL Kvng Results Last 24 Hours: Microbiology 04/06/19 13:24 Influenza Type A Antigen Screen - Final Nasal, Unspecified NEGATIVE INFLUENZA A VIRUS AG REFERENCE RANGE: NEGATIVE Influenza Type B Antigen Screen - Final NEGATIVE INFLUENZA B VIRUS AG REFERENCE RANGE: NEGATIVE Med Orders - Current: Current Medications Acetaminophen (Tylenol Arthritis Pain) 650 mg PO Q8H PRN PRN Reason: Pain Albuterol (Ventolin Hfa) 0 gm INH Q6H PRN PRN Reason: Shortness of Breath Albuterol/Ipratropium (Duoneb 3.0-0.5 Mg/3 Ml) 3 ml NEB Q4H PRN PRN Reason: Shortness Of Breath/wheezing Albuterol/Ipratropium (Duoneb 3.0-0.5 Mg/3 Ml) 3 ml INH Q6H PRN PRN Reason: copd Aspirin (Halfprin) 81 mg PO DAILY [facility] Last Admin: 04/07/19 08:44 Dose: 81 mg Atorvastatin Calcium (Lipitor) 10 mg PO BEDTIME [facility] Last Admin: 04/06/19 22:34 Dose: 10 mg Budesonide (Pulmicort) 0.5 mg INH BIDRT [facility] Last Admin: 04/07/19 07:39 Dose: 0.5 mg Bupropion HCl (Wellbutrin Xl) 300 mg PO DAILY [facility] Last Admin: 04/07/19 08:44 Dose: 300 mg Calcium Citrate (Calcium Citrate + D) 2 tab PO BID [facility] Last Admin: 04/07/19 08:44 Dose: 2 tab Cholecalciferol (Vitamin D3) 25 mcg PO DAILY [facility] Last Admin: 04/07/19 08:44 Dose: 25 mcg Cyanocobalamin (Vitamin B12) 500 mcg PO DAILY [facility] Last Admin: 04/07/19 08:44 Dose: 500 mcg Docusate Sodium (Colace) 200 mg PO DAILY PRN PRN Reason: Constipation Donepezil HCl (Aricept) 10 mg PO DAILY [facility] Last Admin: 04/07/19 08:44 Dose: 10 mg Fish Oil (Fish Oil) 1 gm PO DAILY [facility] Last Admin: 04/07/19 08:44 Dose: 1 gm Fluticasone Propionate (Flonase) 0 gm NASBOTH DAILY PRN PRN Reason: nasal congestion Furosemide (Lasix) 40 mg IVPUSH BID [facility] Last Admin: 04/07/19 08:52 Dose: 40 mg Furosemide (Lasix) 40 mg PO DAILY [facility] Last Admin: 04/07/19 08:51 Dose: 40 mg Furosemide (Lasix) 80 mg PO DAILY PRN PRN Reason: weight gain Gabapentin (Neurontin) 300 mg PO BID [facility] Last Admin: 04/07/19 08:44 Dose: 300 mg Glipizide (Glucotrol) 10 mg PO BIDAC [facility] Last Admin: 04/07/19 08:44 Dose: 10 mg Insulin Glargine (Lantus Solostar) 15 units SUBCUT BEDTIME [facility] Last Admin: 04/06/19 22:27 Dose: 15 units Lactobacillus Acidophilus/Rhamnosus (Multi-[place] Plus) 1 cap PO DAILY [facility] Last Admin: 04/07/19 08:44 Dose: 1 cap Loratadine (Claritin) 10 mg PO DAILY PRN PRN Reason: Allergies Losartan Potassium (Cozaar) 25 mg PO DAILY [facility] Last Admin: 04/07/19 08:44 Dose: 25 mg Melatonin (Melatonin) 6 mg PO BEDTIME PRN PRN Reason: Insomnia Last Admin: 04/06/19 22:34 Dose: 6 mg Metformin HCl (Glucophage) 1,000 mg PO BIDMEALS [facility] Last Admin: 04/07/19 08:44 Dose: 1,000 mg Metoprolol Succinate (Toprol Xl) 200 mg PO DAILY [facility] Last Admin: 04/07/19 08:44 Dose: 200 mg Omeprazole (Omeprazole) 40 mg PO ACBREAKFAST [facility] Last Admin: 04/07/19 07:36 Dose: 40 mg Sodium Chloride (Saline Flush) 10 ml FLUSH Q8HR PRN PRN Reason: keep vein open Tamsulosin HCl (Flomax) 0.8 mg PO BEDTIME [facility] Last Admin: 04/06/19 22:33 Dose: 0.8 mg Warfarin Sodium (Coumadin) 10 mg PO MoWeFr@1800 [facility] Warfarin Sodium (Pharmacy To Dose - Warfarin) 1 dose .XX ASDIRECTED [facility] Warfarin Sodium (Coumadin) 7.5 mg PO SuTuThSa@1800 [facility] Discontinued Medications Albuterol/Ipratropium (Duoneb 3.0-0.5 Mg/3 Ml) 3 ml NEB ONETIME ONE Stop: 04/06/19 13:52 Last Admin: 04/06/19 14:05 Dose: 3 ml Albuterol/Ipratropium (Duoneb 3.0-0.5 Mg/3 Ml) Confirm Administered Dose 3 ml .ROUTE .STK-MED ONE Stop: 04/06/19 13:48 Last Admin: 04/06/19 14:05 Dose: Not Given Furosemide (Lasix) 40 mg IVPUSH NOW ONE Stop: 04/06/19 14:27 Last Admin: 04/06/19 14:32 Dose: 40 mg Furosemide (Lasix) Confirm Administered Dose 40 mg .ROUTE .STK-MED ONE Stop: 04/06/19 14:24 Last Admin: 04/06/19 14:32 Dose: Not Given Furosemide (Lasix) 80 mg IVPUSH NOW ONE Stop: 04/06/19 14:31 Last Admin: 04/06/19 15:30 Dose: Not Given Furosemide (Lasix) 40 mg IVPUSH NOW ONE Stop: 04/06/19 15:13 Last Admin: 04/06/19 15:16 Dose: 40 mg Nitroglycerin (Nitro-Bid 2%) 1 gm TOP ONETIME ONE Stop: 04/06/19 14:31 Last Admin: 04/06/19 14:40 Dose: Not Given Sodium Chloride (Saline Flush) 10 ml FLUSH Q8HR PRN PRN Reason: keep vein open Warfarin Sodium (Coumadin) 7.2 mg PO SuTuThSa@1800 [facility] - Exam Quality Assessment: Supplemental Oxygen General: Alert, Oriented, Cooperative, No Acute Distress Lungs: Decreased Breath Sounds Cardiovascular: Irregular Rhythm GI/Abdominal Exam: Normal Bowel Sounds Extremities: No Pedal Edema Sepsis Event Note - Evaluation Sepsis Screening Result: No Definite Risk - Focused Exam Vital Signs: Vital Signs Temp Temp Pulse Pulse Resp BP BP 04/07/19 08:44 78 116/60 04/07/19 07:40 74 04/07/19 06:24 96.8 F L 78 22 H 114/67 04/07/19 03:00 96.8 F L 70 24 H 116/64 04/06/19 22:52 98.4 F 91 28 H 128/84 04/06/19 22:45 88 Pulse Ox Pulse Ox 04/07/19 08:44 04/07/19 07:40 92 L 04/07/19 06:24 91 L 04/07/19 03:00 92 L 04/06/19 22:52 93 L 04/06/19 22:45 91 L Date Exam was Performed: 04/07/19 Time Exam was Performed: 09:04 - Problem List Review Problem List Initiated/Reviewed/Updated: Yes - My Orders Last 24 Hours: My Active Orders 04/06/19 16:12 Weight, Daily [Height and Weight] [RC] DAILY 04/06/19 19:18 Acetaminophen [Tylenol Arthritis Pain] 650 mg PO Q8H PRN Albuterol [Ventolin HFA] 0 gm INH Q6H PRN Albuterol/Ipratropium [DuoNeb 3.0-0.5 MG/3 ML] 3 ml INH Q6H PRN Docusate Sodium [Colace] 200 mg PO DAILY PRN Fluticasone Propionate [Flonase] 0 gm NASBOTH DAILY PRN Furosemide [Lasix] 80 mg PO DAILY PRN Loratadine [Claritin] 10 mg PO DAILY PRN 04/06/19 19:30 Pharmacy to Dose - Warfarin 1 dose .XX ASDIRECTED 04/06/19 21:00 Budesonide [Pulmicort] 0.5 mg INH BIDRT Gabapentin [Neurontin] 300 mg PO BID Insulin Glarg,Human.Rec.Analog [LantUS Solostar] 15 units SUBCUT BEDTIME Tamsulosin [Flomax] 0.8 mg PO BEDTIME atorvaSTATin [Lipitor] 10 mg PO BEDTIME 04/06/19 22:15 Melatonin 6 mg PO BEDTIME PRN 04/07/19 07:30 Omeprazole 40 mg PO ACBREAKFAST 04/07/19 08:00 metFORMIN [Glucophage] 1,000 mg PO BIDMEALS 04/07/19 09:00 Aspirin [Halfprin] 81 mg PO DAILY B.Bif/B.Long/L.Acidoph/L.Rhamn [Multi-[place] Plus] 1 cap PO DAILY Calcium Citrate/Vitamin D3 [Calcium Citrate + D] 2 tab PO BID Cholecalciferol (Vitamin D3) [Vitamin D3] 25 mcg PO DAILY Cyanocobalamin (Vitamin B12) [Vitamin B12] 500 mcg PO DAILY Donepezil [Aricept] 10 mg PO DAILY Fish Oil/[place]-3 Fatty Acids [Fish Oil] 1 gm PO DAILY Furosemide [Lasix] 40 mg PO DAILY Losartan [Cozaar] 25 mg PO DAILY Metoprolol Succinate [Toprol XL] 200 mg PO DAILY buPROPion [Wellbutrin XL] 300 mg PO DAILY glipiZIDE [Glucotrol] 10 mg PO BIDAC 04/07/19 18:00 Warfarin [Coumadin] 10 mg PO MoWeFr@1800 04/08/19 18:00 Warfarin [Coumadin] 7.5 mg PO SuTuThSa@1800 - Assessment Assessment:: Admission diagnoses: CHF exacerbation Supratherapeutic INR with no evidence of bleeding. Secondary diagnoses: Atrial fibrillation with chronic anticoagulation Ischemic cardiomyopathy HFrEF, Class III COPD on continuous O2 Hx CVA Cognitive impairment Depression Acid reflux DM Hyperlipidemia HTN Peripheral neuropathy JACINTO on CPAP - Plan Plan:: Admission diagnoses: CHF exacerbation. Continue home lasix dose as well as 40 mg IV BID until back to baseline weight of 164. Supratherapeutic INR with no evidence of bleeding. Pharmacy to dose warfarin while hospitalized. INR trending down. Secondary diagnoses: Atrial fibrillation with chronic anticoagulation Ischemic cardiomyopathy HFrEF, Class III COPD on continuous O2 Hx CVA Cognitive impairment Depression Acid reflux DM Hyperlipidemia HTN Peripheral neuropathy JACINTO on CPAP Continue all home meds. Will d/c telemetry but continue with continuous O2 monitoring for at least one more day. Anticipate d/c back to [facility] in 2 days.
[2019-04-07] MEDS ORDERED: Warfarin 5 MG Tab PO SCH (18:00)
[2019-04-07] MEDS: atorvaSTATin 10 MG Tab PO SCH (20:10)
[2019-04-07] MEDS: Tamsulosin 0.4 MG Cap.ER PO SCH (20:10)
[2019-04-07] MEDS: Insulin Glargine,Human Rec. Analog 100 Units/ML 3 ML Pen SUBCUT SCH (20:13)
[2019-04-08] MEDS: Albuterol/Ipratropium 3.0-0.5 MG/3 ML Neb Soln INH PRN (06:21)
[2019-04-08] MEDS: Omeprazole 20 MG Cap.CR PO SCH (06:31)
[2019-04-08 07:35] LABS: ANION GAP 13.4 mmol/L (5-15); CHLORIDE,CL 98 mmol/L (98-115); SODIUM,NA 138 mmol/L (136-145)
[2019-04-08] MEDS: metFORMIN 500 MG Tab PO SCH ×2 (08:45→18:03)
[2019-04-08] MEDS: Losartan 50 MG Tab PO SCH (08:46)
[2019-04-08] MEDS: Metoprolol Succinate 50 MG Tab.ER PO SCH (08:47)
[2019-04-08] MEDS: buPROPion 150 MG Tab.ER PO SCH (08:47)
[2019-04-08] MEDS: B.Bifidum/B.Longum/L.Acidophilus/L.Rhamnosus (Probiotic) Cap PO SCH (08:47)
[2019-04-08] MEDS: glipiZIDE 5 MG Tab PO SCH ×2 (08:47→18:03)
[2019-04-08] MEDS: Aspirin 81 MG Tab.EC PO SCH (08:47)
[2019-04-08] MEDS: Cholecalciferol (Vitamin D3) 25 MCG Tab PO SCH (08:47)
[2019-04-08] MEDS: Cyanocobalamin (Vitamin B12) 500 MCG Tab PO SCH (08:47)
[2019-04-08] MEDS: Furosemide 20 MG Tab PO SCH (08:48)
[2019-04-08] MEDS: Calcium Citrate/Vitamin D3 315 MG-250 Unit Tab PO SCH ×2 (08:48→20:11)
[2019-04-08] MEDS: Gabapentin 300 MG Cap PO SCH ×2 (08:49→20:11)
[2019-04-08] MEDS: Donepezil 10 MG Tab PO SCH (08:49)
[2019-04-08] MEDS: Fish Oil/Omega-3 Fatty Acids 1 Gm Cap PO SCH (08:49)
[2019-04-08] MEDS: Sodium Chloride 0.9% 10 ML Syringe FLUSH PRN (08:53)
[2019-04-08] MEDS: Furosemide 40 MG/4 ML VIAL IVPUSH SCH ×2 (08:55→20:11)
[2019-04-08] MEDS: Budesonide 0.5 MG/2 ML Neb Susp INH SCH ×2 (08:58→20:15)
--- NOTE | 2019-04-08 09:49 | PCM.PN ---
- General Info Date of Service: 04/08/19 Admission Dx/Problem (Free Text): CHF exacerbation - Review of Systems Systems Review Comment:: Ed is seen today on inpatient rounds. He was admitted on 04/06 through the ER for CHF exacerbation. Baseline weight is 164-166 and he was actually up at 174 lbs on admission. He has been diuresed with IV lasix 40 mg IV BID in addition to his 40 mg PO he takes daily. His weight is down to 167. His O2 has been able to be weaned down to his baseline 2L via NC. He feels SOB occasionally but overall feels better. He denies any N/V/D, he denies pain. Appetite has been good. No issues overnight. - Patient Data Vitals - Most Recent: Last Vital Signs Temp 97.3 F 04/08/19 06:52 Pulse 88 04/08/19 08:47 Resp 20 04/08/19 06:52 BP 120/60 04/08/19 08:47 Pulse Ox 93 L 04/08/19 06:52 Weight - Most Recent: 167 lb I&O - Last 24 Hours: Intake & Output 04/07/19 04/08/19 04/08/19 22:59 06:59 14:59 Intake Total 400 320 Output Total 300 600 Balance 100 -280 Lab Results Last 24 Hours: Laboratory Results - last 24 hr 04/07/19 04/08/19 04/08/19 Range/Units 20:08 07:00 07:00 WBC 8.99 (5.00-10.00) 10^3/uL RBC 3.32 L (4.50-6.00) 10^6/uL Hgb 9.4 L (13.0-17.0) g/dL Hct 29.9 L (40.0-52.0) % MCV 90.1 (82.0-92.0) fL MCH 28.3 (27.0-31.0) pg MCHC 31.4 L (32.0-36.0) g/dL RDW 18.3 H (11.5-14.5) % Plt Count 270 (150-400) 10^3/uL MPV 8.5 (7.4-10.4) fL Immature Gran % (Auto) 0.2 (0.0-5.0) % Neut % (Auto) 73.0 H (50.0-70.0) % Lymph % (Auto) 14.5 L (20.0-40.0) % [place] % (Auto) 8.2 H (2.0-8.0) % Eos % (Auto) 3.7 H (1.0-3.0) % Baso % (Auto) 0.4 (0.0-1.0) % Immature Gran # (Auto) 0.02 (0.00-0.50) 10^3/uL Neut # (Auto) 6.56 (2.50-7.00) 10^3/uL Lymph # (Auto) 1.30 (1.00-4.00) 10^3/uL [place] # (Auto) 0.74 (0.10-0.80) 10^3/uL Eos # (Auto) 0.33 H (0.10-0.30) 10^3/uL Baso # (Auto) 0.04 (0.00-0.10) 10^3/uL PT (8.9-11.4) SEC INR (0.9-1.1) Sodium 138 (136-145) mmol/L Potassium 3.7 (3.3-5.3) mmol/L Chloride 98 (98-115) mmol/L Carbon Dioxide 30.3 (21.0-32.0) mmol/L Anion Gap 13.4 (5-15) mmol/L BUN 17 (6-25) mg/dL Creatinine 0.85 (0.51-1.17) mg/dL Est Cr Clr Drug Dosing 64.63 mL/min Estimated GFR (MDRD) > 60 mL/min Glucose 166 H (75 - 99) mg/dL POC Glucose 80 (74-106) mg/dl Calcium 8.5 L (8.7-10.3) mg/dL 04/08/19 Range/Units 07:00 WBC (5.00-10.00) 10^3/uL RBC (4.50-6.00) 10^6/uL Hgb (13.0-17.0) g/dL Hct (40.0-52.0) % MCV (82.0-92.0) fL MCH (27.0-31.0) pg MCHC (32.0-36.0) g/dL RDW (11.5-14.5) % Plt Count (150-400) 10^3/uL MPV (7.4-10.4) fL Immature Gran % (Auto) (0.0-5.0) % Neut % (Auto) (50.0-70.0) % Lymph % (Auto) (20.0-40.0) % [place] % (Auto) (2.0-8.0) % Eos % (Auto) (1.0-3.0) % Baso % (Auto) (0.0-1.0) % Immature Gran # (Auto) (0.00-0.50) 10^3/uL Neut # (Auto) (2.50-7.00) 10^3/uL Lymph # (Auto) (1.00-4.00) 10^3/uL [place] # (Auto) (0.10-0.80) 10^3/uL Eos # (Auto) (0.10-0.30) 10^3/uL Baso # (Auto) (0.00-0.10) 10^3/uL PT 28.5 H (8.9-11.4) SEC INR 2.9 H (0.9-1.1) Sodium (136-145) mmol/L Potassium (3.3-5.3) mmol/L Chloride (98-115) mmol/L Carbon Dioxide (21.0-32.0) mmol/L Anion Gap (5-15) mmol/L BUN (6-25) mg/dL Creatinine (0.51-1.17) mg/dL Est Cr Clr Drug Dosing mL/min Estimated GFR (MDRD) mL/min Glucose (75 - 99) mg/dL POC Glucose (74-106) mg/dl Calcium (8.7-10.3) mg/dL Med Orders - Current: Current Medications Acetaminophen (Tylenol Arthritis Pain) 650 mg PO Q8H PRN PRN Reason: Pain Albuterol (Ventolin Hfa) 0 gm INH Q6H PRN PRN Reason: Shortness of Breath Albuterol/Ipratropium (Duoneb 3.0-0.5 Mg/3 Ml) 3 ml INH Q6H PRN PRN Reason: copd Last Admin: 04/08/19 06:21 Dose: 3 ml Aspirin (Halfprin) 81 mg PO DAILY [facility] Last Admin: 04/08/19 08:47 Dose: 81 mg Atorvastatin Calcium (Lipitor) 10 mg PO BEDTIME [facility] Last Admin: 04/07/19 20:10 Dose: 10 mg Budesonide (Pulmicort) 0.5 mg INH BIDRT [facility] Last Admin: 04/08/19 08:58 Dose: 0.5 mg Bupropion HCl (Wellbutrin Xl) 300 mg PO DAILY [facility] Last Admin: 04/08/19 08:47 Dose: 300 mg Calcium Citrate (Calcium Citrate + D) 2 tab PO BID [facility] Last Admin: 04/08/19 08:48 Dose: 2 tab Cholecalciferol (Vitamin D3) 25 mcg PO DAILY [facility] Last Admin: 04/08/19 08:47 Dose: 25 mcg Cyanocobalamin (Vitamin B12) 500 mcg PO DAILY [facility] Last Admin: 04/08/19 08:47 Dose: 500 mcg Docusate Sodium (Colace) 200 mg PO DAILY PRN PRN Reason: Constipation Donepezil HCl (Aricept) 10 mg PO DAILY [facility] Last Admin: 04/08/19 08:49 Dose: 10 mg Fish Oil (Fish Oil) 1 gm PO DAILY [facility] Last Admin: 04/08/19 08:49 Dose: 1 gm Fluticasone Propionate (Flonase) 0 gm NASBOTH DAILY PRN PRN Reason: nasal congestion Furosemide (Lasix) 40 mg IVPUSH BID [facility] Last Admin: 04/08/19 08:55 Dose: 40 mg Furosemide (Lasix) 40 mg PO DAILY [facility] Last Admin: 04/08/19 08:48 Dose: 40 mg Furosemide (Lasix) 80 mg PO DAILY PRN PRN Reason: weight gain Gabapentin (Neurontin) 300 mg PO BID [facility] Last Admin: 04/08/19 08:49 Dose: 300 mg Glipizide (Glucotrol) 10 mg PO BIDAC [facility] Last Admin: 04/08/19 08:47 Dose: 10 mg Insulin Glargine (Lantus Solostar) 15 units SUBCUT BEDTIME [facility] Last Admin: 04/07/19 20:13 Dose: 15 units Lactobacillus Acidophilus/Rhamnosus (Multi-[place] Plus) 1 cap PO DAILY [facility] Last Admin: 04/08/19 08:47 Dose: 1 cap Loratadine (Claritin) 10 mg PO DAILY PRN PRN Reason: Allergies Losartan Potassium (Cozaar) 25 mg PO DAILY [facility] Last Admin: 04/08/19 08:46 Dose: 25 mg Melatonin (Melatonin) 6 mg PO BEDTIME PRN PRN Reason: Insomnia Last Admin: 04/06/19 22:34 Dose: 6 mg Metformin HCl (Glucophage) 1,000 mg PO BIDMEALS [facility] Last Admin: 04/08/19 08:45 Dose: 1,000 mg Metoprolol Succinate (Toprol Xl) 200 mg PO DAILY [facility] Last Admin: 04/08/19 08:47 Dose: 200 mg Omeprazole (Omeprazole) 40 mg PO ACBREAKFAST [facility] Last Admin: 04/08/19 06:31 Dose: 40 mg Sodium Chloride (Saline Flush) 10 ml FLUSH Q8HR PRN PRN Reason: keep vein open Last Admin: 04/08/19 08:53 Dose: 10 ml Tamsulosin HCl (Flomax) 0.8 mg PO BEDTIME [facility] Last Admin: 04/07/19 20:10 Dose: 0.8 mg Warfarin Sodium (Coumadin) 10 mg PO MoWeFr@1800 [facility] Warfarin Sodium (Pharmacy To Dose - Warfarin) 1 dose .XX ASDIRECTED [facility] Warfarin Sodium (Coumadin) 7.5 mg PO SuTuThSa@1800 [facility] Discontinued Medications Albuterol/Ipratropium (Duoneb 3.0-0.5 Mg/3 Ml) 3 ml NEB ONETIME ONE Stop: 04/06/19 13:52 Last Admin: 04/06/19 14:05 Dose: 3 ml Albuterol/Ipratropium (Duoneb 3.0-0.5 Mg/3 Ml) Confirm Administered Dose 3 ml .ROUTE .STK-MED ONE Stop: 04/06/19 13:48 Last Admin: 04/06/19 14:05 Dose: Not Given Albuterol/Ipratropium (Duoneb 3.0-0.5 Mg/3 Ml) 3 ml NEB Q4H PRN PRN Reason: Shortness Of Breath/wheezing Furosemide (Lasix) 40 mg IVPUSH NOW ONE Stop: 04/06/19 14:27 Last Admin: 04/06/19 14:32 Dose: 40 mg Furosemide (Lasix) Confirm Administered Dose 40 mg .ROUTE .STK-MED ONE Stop: 04/06/19 14:24 Last Admin: 04/06/19 14:32 Dose: Not Given Furosemide (Lasix) 80 mg IVPUSH NOW ONE Stop: 04/06/19 14:31 Last Admin: 04/06/19 15:30 Dose: Not Given Furosemide (Lasix) 40 mg IVPUSH NOW ONE Stop: 04/06/19 15:13 Last Admin: 04/06/19 15:16 Dose: 40 mg Nitroglycerin (Nitro-Bid 2%) 1 gm TOP ONETIME ONE Stop: 04/06/19 14:31 Last Admin: 04/06/19 14:40 Dose: Not Given Sodium Chloride (Saline Flush) 10 ml FLUSH Q8HR PRN PRN Reason: keep vein open Warfarin Sodium (Coumadin) 7.2 mg PO SuTuThSa@1800 [facility] - Exam Quality Assessment: Supplemental Oxygen General: Alert, Oriented, Cooperative, No Acute Distress Lungs: Clear to Auscultation, Decreased Breath Sounds Cardiovascular: Irregular Rhythm GI/Abdominal Exam: Normal Bowel Sounds Extremities: No Pedal Edema Sepsis Event Note - Evaluation Sepsis Screening Result: No Definite Risk - Focused Exam Vital Signs: Vital Signs Temp Pulse Pulse Resp BP BP Pulse Ox 04/08/19 08:47 88 120/60 04/08/19 08:46 120/60 04/08/19 06:52 97.3 F 90 20 107/60 93 L 04/08/19 06:21 78 04/08/19 02:56 96.7 F L 89 20 94/51 L 93 L 04/07/19 22:57 97.9 F 79 20 101/54 L 94 L Pulse Ox 04/08/19 08:47 04/08/19 08:46 04/08/19 06:52 04/08/19 06:21 84 L 04/08/19 02:56 04/07/19 22:57 Date Exam was Performed: 04/08/19 Time Exam was Performed: 09:44 - Problem List Review Problem List Initiated/Reviewed/Updated: Yes - My Orders Last 24 Hours: My Active Orders 04/07/19 09:00 Aspirin [Halfprin] 81 mg PO DAILY B.Bif/B.Long/L.Acidoph/L.Rhamn [Multi-Paris Plus] 1 cap PO DAILY Calcium Citrate/Vitamin D3 [Calcium Citrate + D] 2 tab PO BID Cholecalciferol (Vitamin D3) [Vitamin D3] 25 mcg PO DAILY Cyanocobalamin (Vitamin B12) [Vitamin B12] 500 mcg PO DAILY Donepezil [Aricept] 10 mg PO DAILY Fish Oil/[place]-3 Fatty Acids [Fish Oil] 1 gm PO DAILY Furosemide [Lasix] 40 mg PO DAILY Losartan [Cozaar] 25 mg PO DAILY Metoprolol Succinate [Toprol XL] 200 mg PO DAILY buPROPion [Wellbutrin XL] 300 mg PO DAILY glipiZIDE [Glucotrol] 10 mg PO BIDAC 04/07/19 18:00 Warfarin [Coumadin] 10 mg PO MoWeFr@1800 04/08/19 18:00 Warfarin [Coumadin] 7.5 mg PO SuTuThSa@1800 04/09/19 05:11 BMP [BASIC METABOLIC PANEL,BMP] [CHEM] AM CBC WITH AUTO DIFF [HEME] AM 04/10/19 05:11 BMP [BASIC METABOLIC PANEL,BMP] [CHEM] AM CBC WITH AUTO DIFF [HEME] AM - Assessment Assessment:: Admission diagnoses: CHF exacerbation Supratherapeutic INR with no evidence of bleeding. Secondary diagnoses: Atrial fibrillation with chronic anticoagulation Ischemic cardiomyopathy HFrEF, Class III COPD on continuous O2 Hx CVA Cognitive impairment Depression Acid reflux DM Hyperlipidemia HTN Peripheral neuropathy JACINTO on CPAP - Plan Plan:: Admission diagnoses: CHF exacerbation. Continue home lasix dose as well as 40 mg IV BID until back to baseline weight of 164-166. Supratherapeutic INR with no evidence of bleeding. Pharmacy to dose warfarin while hospitalized. INR 2.9 today, therapeutic. Secondary diagnoses: Atrial fibrillation with chronic anticoagulation Ischemic cardiomyopathy HFrEF, Class III COPD on continuous O2 Hx CVA Cognitive impairment Depression Acid reflux DM Hyperlipidemia HTN Peripheral neuropathy JACINTO on CPAP Continue all home meds. Anticipate d/c back to [facility] tomorrow (04/09).
[2019-04-08] MEDS ORDERED: Warfarin 2.5 MG Tab PO SCH ×2 (18:00)
[2019-04-08] MEDS: Insulin Glargine,Human Rec. Analog 100 Units/ML 3 ML Pen SUBCUT SCH (20:10)
[2019-04-08] MEDS: Tamsulosin 0.4 MG Cap.ER PO SCH (20:10)
[2019-04-08] MEDS: atorvaSTATin 10 MG Tab PO SCH (20:11)
[2019-04-09] MEDS: Albuterol/Ipratropium 3.0-0.5 MG/3 ML Neb Soln INH PRN (02:12)
[2019-04-09 08:19] LABS: CHLORIDE,CL 99 mmol/L (98-115); SODIUM,NA 135 mmol/L (136-145)
[2019-04-09] MEDS: buPROPion 150 MG Tab.ER PO SCH (08:28)
[2019-04-09] MEDS: Omeprazole 20 MG Cap.CR PO SCH (08:29)
[2019-04-09] MEDS: Cholecalciferol (Vitamin D3) 25 MCG Tab PO SCH (08:29)
[2019-04-09] MEDS: Calcium Citrate/Vitamin D3 315 MG-250 Unit Tab PO SCH (08:29)
[2019-04-09] MEDS: B.Bifidum/B.Longum/L.Acidophilus/L.Rhamnosus (Probiotic) Cap PO SCH (08:30)
[2019-04-09] MEDS: Metoprolol Succinate 50 MG Tab.ER PO SCH (08:30)
[2019-04-09] MEDS: metFORMIN 500 MG Tab PO SCH (08:30)
[2019-04-09] MEDS: Gabapentin 300 MG Cap PO SCH (08:30)
[2019-04-09] MEDS: Donepezil 10 MG Tab PO SCH (08:30)
[2019-04-09] MEDS: Cyanocobalamin (Vitamin B12) 500 MCG Tab PO SCH (08:30)
[2019-04-09] MEDS: Fish Oil/Omega-3 Fatty Acids 1 Gm Cap PO SCH (08:30)
[2019-04-09] MEDS: glipiZIDE 5 MG Tab PO SCH (08:32)
[2019-04-09] MEDS: Furosemide 20 MG Tab PO SCH (08:32)
[2019-04-09] MEDS: Losartan 50 MG Tab PO SCH (08:32)
[2019-04-09] MEDS: Aspirin 81 MG Tab.EC PO SCH (08:33)
[2019-04-09] MEDS: Budesonide 0.5 MG/2 ML Neb Susp INH SCH (08:34)
[2019-04-09] MEDS: Furosemide 40 MG/4 ML VIAL IVPUSH SCH (08:34)
[2019-04-09] MEDS: Sodium Chloride 0.9% 10 ML Syringe FLUSH PRN (08:35)
[2019-04-09 10:53] VITALS: BP 117/60; PULSE 81
--- NOTE | 2019-04-09 11:03 | PCM.DCSUM1 ---
Discharge Summary - Hospital Course Free Text/Narrative:: Admission Date: 04/06/2019 Discharge Date: 04/09/2019 Disposition: Return to shelter facility, [facility] CODE STATUS: DNR/DNI Admission diagnoses: CHF exacerbation. Resume regular lasix dosing of 40 mg PO daily with additional 80 mg PO daily until weight is 164 lbs. Daily weights. Supratherapeutic INR with no evidence of bleeding. Resolved. Resume outpatient warfarin dosing with INR in 1 week. Secondary diagnoses: Atrial fibrillation with chronic anticoagulation Ischemic cardiomyopathy HFrEF, Class III COPD on continuous O2 Hx CVA Cognitive impairment Depression Acid reflux DM Hyperlipidemia HTN Peripheral neuropathy JACINTO on CPAP Continue all home meds. No medication changes at discharge. Please give extra lasix 80 mg daily until weight is 164 lbs. Ed is being discharged today from a 3 day inpatient stay. He was admitted on through the ER. He resides at [facility] and had been at the eye doctor that day and was noted to be tachypneic. The eye doctor told him to present to the ER and so he presented by private vehicle to the ER. He was noted to have O2 sats <90% on 2L. He chronically wears 2L of O2 at baseline due to a hx of COPD. He was also noted to have an elevated BNP and CXR with pulmonary vascular congestion. His weight in the ER was 174 and his baseline weight is 164. He was given lasix 80 mg IV x 1 dose and then started on 40 mg IV BID in addition to his outpatient dose of 40 mg PO daily. A ayala catheter was placed per patient request to minimize trips to the bathroom. His weight is down to 166 the day of discharge. He feels better overall today although is still somewhat more SOB that his baseline. He has been afebrile. He has no ill symptoms. Diagnosis: Stroke: No Modified [place] Scale: No Signif.Disability Despite Sympt.Able to Carry Out Usual Act./Duties Modified [place] Scale Score: 1 - Discharge Data Discharge Date: 04/09/19 Discharge Disposition: DC/Tfer to SNF 03 Condition: Good - Referral to Home Health Primary Care Physician: Lupe Burch MD - Patient Summary/Data Recommended Follow-up Testing/Procedures: INR on 04/17/2019 - Discharge Plan *PRESCRIPTION DRUG MONITORING PROGRAM REVIEWED*: Not Applicable *COPY OF PRESCRIPTION DRUG MONITORING REPORT IN PATIENT JARRELL: Not Applicable Home Medications: Home Meds Omeprazole [Prilosec] 40 mg PO DAILY 11/10/13 [History] atorvaSTATin [Lipitor] 10 mg PO BEDTIME 03/22/15 [History] Fluticasone Propionate [Flonase] 2 sprays NASBOTH DAILY PRN 03/29/16 [History] Furosemide [Lasix] 40 mg PO DAILY 03/29/16 [History] Tamsulosin HCl [Flomax] 0.8 mg PO BEDTIME 03/29/16 [History] Warfarin Dosing [Coumadin Ask] 7.5 mg PO ASDIRECTED 03/29/16 [History] buPROPion [Wellbutrin XL] 300 mg PO DAILY 08/26/16 [History] Aspirin [Halfprin] 81 mg PO DAILY 01/10/17 [History] Metoprolol Succinate [Toprol XL] 200 mg PO DAILY 01/10/17 [History] metFORMIN HCl [Metformin HCl] 1,000 mg PO BIDMEALS 02/21/17 [History] Docusate Sodium [Colace] 200 mg PO DAILY PRN 02/07/18 [History] Gabapentin [Neurontin] 300 mg PO BID 02/07/18 [History] Albuterol Sulfate [Proair Hfa] 2 inhaler IH Q6H PRN 03/21/18 [History] Budesonide [Pulmicort] 2 ml INH BID 10/07/18 [History] Loratadine 10 mg PO DAILY PRN 10/07/18 [History] Losartan Potassium 25 mg PO DAILY 10/07/18 [History] Warfarin Sodium 5 mg PO ASDIRECTED 10/07/18 [History] Acetaminophen [8Hr Arthritis Pain] 650 mg PO Q8H PRN 04/06/19 [History] Albuterol/Ipratropium [DuoNeb 3.0-0.5 MG/3 ML] 1 ampule INH Q6H PRN 04/06/19 [ History] Bacillus Coagulans [Probiotic] 1 each PO DAILY 04/06/19 [History] Calcium Carbonate/Vitamin D3 [Calcium Carbonate/Vitamin D 600 MG-200 Unit] 1 cap PO BID 04/06/19 [History] Cholecalciferol (Vitamin D3) [Vitamin D3] 1,000 unit PO DAILY 04/06/19 [History] Cyanocobalamin (Vitamin B12) [Vitamin B12] 500 mcg PO DAILY 04/06/19 [History] Donepezil HCl 10 mg PO DAILY 04/06/19 [History] Furosemide [Lasix] 80 mg PO DAILY PRN 04/06/19 [History] Insulin Glargine,Hum.Rec.Anlog [Basaglar Kwikpen U-100] 15 units SUBCUT BEDTIME 04/06/19 [History] Melatonin 6 mg PO BEDTIME PRN 04/06/19 [History] [place]ett-3/DHA/Epa/Fish Oil [[place]ett 3 500 Softgel] 2 cap PO DAILY 04/06/19 [History] glipiZIDE [Glucotrol] 10 mg PO BID 04/06/19 [History] Forms: ED Department Discharge Referrals: Lupe Bruch MD [Primary Care Provider] - - Discharge Summary/Plan Comment DC Time >30 min.: No - General Info Date of Service: 04/09/19 Admission Dx/Problem (Free Text: CHF exacerbation - Patient Data Vitals - Most Recent: Last Vital Signs Temp 96.5 F L 04/09/19 10:52 Pulse 81 04/09/19 10:52 Resp 20 04/09/19 10:52 BP 117/60 04/09/19 10:52 Pulse Ox 90 L 04/09/19 10:52 Weight - Most Recent: 166 lb 3 oz I&O - Last 24 hours: Intake & Output 04/08/19 04/09/19 04/09/19 22:59 06:59 14:59 Intake Total 400 150 Output Total 500 400 Balance -100 -250 Lab Results - Last 24 hrs: Laboratory Results - last 24 hr 04/08/19 04/09/19 04/09/19 Range/Units 20:08 07:15 07:15 WBC 9.06 (5.00-10.00) 10^3/uL RBC 3.22 L (4.50-6.00) 10^6/uL Hgb 9.2 L (13.0-17.0) g/dL Hct 29.0 L (40.0-52.0) % MCV 90.1 (82.0-92.0) fL MCH 28.6 (27.0-31.0) pg MCHC 31.7 L (32.0-36.0) g/dL RDW 18.4 H (11.5-14.5) % Plt Count 281 (150-400) 10^3/uL MPV 8.7 (7.4-10.4) fL Immature Gran % (Auto) 0.2 (0.0-5.0) % Neut % (Auto) 71.0 H (50.0-70.0) % Lymph % (Auto) 16.2 L (20.0-40.0) % [place] % (Auto) 8.7 H (2.0-8.0) % Eos % (Auto) 3.3 H (1.0-3.0) % Baso % (Auto) 0.6 (0.0-1.0) % Immature Gran # (Auto) 0.02 (0.00-0.50) 10^3/uL Neut # (Auto) 6.43 (2.50-7.00) 10^3/uL Lymph # (Auto) 1.47 (1.00-4.00) 10^3/uL [place] # (Auto) 0.79 (0.10-0.80) 10^3/uL Eos # (Auto) 0.30 (0.10-0.30) 10^3/uL Baso # (Auto) 0.05 (0.00-0.10) 10^3/uL Sodium 135 L (136-145) mmol/L Potassium 3.9 (3.3-5.3) mmol/L Chloride 99 (98-115) mmol/L Carbon Dioxide 30.9 (21.0-32.0) mmol/L Anion Gap 9.0 (5-15) mmol/L BUN 15 (6-25) mg/dL Creatinine 0.78 (0.51-1.17) mg/dL Est Cr Clr Drug Dosing 70.43 mL/min Estimated GFR (MDRD) > 60 mL/min Glucose 91 (75 - 99) mg/dL POC Glucose 158 H (74-106) mg/dl Calcium 8.7 (8.7-10.3) mg/dL Med Orders - Current: Current Medications Acetaminophen (Tylenol Arthritis Pain) 650 mg PO Q8H PRN PRN Reason: Pain Albuterol (Ventolin Hfa) 0 gm INH Q6H PRN PRN Reason: Shortness of Breath Albuterol/Ipratropium (Duoneb 3.0-0.5 Mg/3 Ml) 3 ml INH Q6H PRN PRN Reason: copd Last Admin: 04/09/19 02:12 Dose: 3 ml Aspirin (Halfprin) 81 mg PO DAILY [facility] Last Admin: 04/09/19 08:33 Dose: 81 mg Atorvastatin Calcium (Lipitor) 10 mg PO BEDTIME [facility] Last Admin: 04/08/19 20:11 Dose: 10 mg Budesonide (Pulmicort) 0.5 mg INH BIDRT [facility] Last Admin: 04/09/19 08:34 Dose: 0.5 mg Bupropion HCl (Wellbutrin Xl) 300 mg PO DAILY [facility] Last Admin: 04/09/19 08:28 Dose: 300 mg Calcium Citrate (Calcium Citrate + D) 2 tab PO BID [facility] Last Admin: 04/09/19 08:29 Dose: 2 tab Cholecalciferol (Vitamin D3) 25 mcg PO DAILY [facility] Last Admin: 04/09/19 08:29 Dose: 25 mcg Cyanocobalamin (Vitamin B12) 500 mcg PO DAILY [facility] Last Admin: 04/09/19 08:30 Dose: 500 mcg Docusate Sodium (Colace) 200 mg PO DAILY PRN PRN Reason: Constipation Donepezil HCl (Aricept) 10 mg PO DAILY [facility] Last Admin: 04/09/19 08:30 Dose: 10 mg Fish Oil (Fish Oil) 1 gm PO DAILY [facility] Last Admin: 04/09/19 08:30 Dose: 1 gm Fluticasone Propionate (Flonase) 0 gm NASBOTH DAILY PRN PRN Reason: nasal congestion Furosemide (Lasix) 40 mg IVPUSH BID [facility] Last Admin: 04/09/19 08:34 Dose: 40 mg Furosemide (Lasix) 40 mg PO DAILY [facility] Last Admin: 04/09/19 08:32 Dose: 40 mg Furosemide (Lasix) 80 mg PO DAILY PRN PRN Reason: weight gain Gabapentin (Neurontin) 300 mg PO BID [facility] Last Admin: 04/09/19 08:30 Dose: 300 mg Glipizide (Glucotrol) 10 mg PO BIDAC [facility] Last Admin: 04/09/19 08:32 Dose: 10 mg Insulin Glargine (Lantus Solostar) 15 units SUBCUT BEDTIME [facility] Last Admin: 04/08/19 20:10 Dose: 15 units Lactobacillus Acidophilus/Rhamnosus (Multi-Paris Plus) 1 cap PO DAILY [facility] Last Admin: 04/09/19 08:30 Dose: 1 cap Loratadine (Claritin) 10 mg PO DAILY PRN PRN Reason: Allergies Losartan Potassium (Cozaar) 25 mg PO DAILY [facility] Last Admin: 04/09/19 08:32 Dose: 25 mg Melatonin (Melatonin) 6 mg PO BEDTIME PRN PRN Reason: Insomnia Last Admin: 04/06/19 22:34 Dose: 6 mg Metformin HCl (Glucophage) 1,000 mg PO BIDMEALS [facility] Last Admin: 04/09/19 08:30 Dose: 1,000 mg Metoprolol Succinate (Toprol Xl) 200 mg PO DAILY [facility] Last Admin: 04/09/19 08:30 Dose: 200 mg Omeprazole (Omeprazole) 40 mg PO ACBREAKFAST [facility] Last Admin: 04/09/19 08:29 Dose: 40 mg Sodium Chloride (Saline Flush) 10 ml FLUSH Q8HR PRN PRN Reason: keep vein open Last Admin: 04/09/19 08:35 Dose: 10 ml Tamsulosin HCl (Flomax) 0.8 mg PO BEDTIME [facility] Last Admin: 04/08/19 20:10 Dose: 0.8 mg Warfarin Sodium (Coumadin) 10 mg PO MoWeFr@1800 [facility] Warfarin Sodium (Pharmacy To Dose - Warfarin) 1 dose .XX ASDIRECTED [facility] Warfarin Sodium (Coumadin) 7.5 mg PO SuTuThSa@1800 [facility] Last Admin: 04/08/19 18:02 Dose: 7.5 mg Discontinued Medications Albuterol/Ipratropium (Duoneb 3.0-0.5 Mg/3 Ml) 3 ml NEB ONETIME ONE Stop: 04/06/19 13:52 Last Admin: 04/06/19 14:05 Dose: 3 ml Albuterol/Ipratropium (Duoneb 3.0-0.5 Mg/3 Ml) Confirm Administered Dose 3 ml .ROUTE .STK-MED ONE Stop: 04/06/19 13:48 Last Admin: 04/06/19 14:05 Dose: Not Given Albuterol/Ipratropium (Duoneb 3.0-0.5 Mg/3 Ml) 3 ml NEB Q4H PRN PRN Reason: Shortness Of Breath/wheezing Furosemide (Lasix) 40 mg IVPUSH NOW ONE Stop: 04/06/19 14:27 Last Admin: 04/06/19 14:32 Dose: 40 mg Furosemide (Lasix) Confirm Administered Dose 40 mg .ROUTE .STK-MED ONE Stop: 04/06/19 14:24 Last Admin: 04/06/19 14:32 Dose: Not Given Furosemide (Lasix) 80 mg IVPUSH NOW ONE Stop: 04/06/19 14:31 Last Admin: 04/06/19 15:30 Dose: Not Given Furosemide (Lasix) 40 mg IVPUSH NOW ONE Stop: 04/06/19 15:13 Last Admin: 04/06/19 15:16 Dose: 40 mg Nitroglycerin (Nitro-Bid 2%) 1 gm TOP ONETIME ONE Stop: 04/06/19 14:31 Last Admin: 04/06/19 14:40 Dose: Not Given Sodium Chloride (Saline Flush) 10 ml FLUSH Q8HR PRN PRN Reason: keep vein open Warfarin Sodium (Coumadin) 7.2 mg PO OctaviaDominik@1800 EDOUARD - Exam Quality Assessment: Reports: Supplemental Oxygen General: Reports: Alert, Oriented, Cooperative, No Acute Distress Lungs: Reports: Clear to Auscultation, Decreased Breath Sounds Cardiovascular: Reports: Irregular Rhythm GI/Abdominal Exam: Normal Bowel Sounds Extremities: Pedal Edema (Trace pedal edema bilatearlly, L slightly greater than R.) Skin: Reports: Warm, Dry, Intact
== END 2019-04-09 13:29 | DRG 293 ==
LOC: KA.ED 13:22 → KA.MS 14:47
PROVIDERS: ADMIT Physician Assistant Medical; ATTEND Internal Medicine
DX: I11.0 Hypertensive heart disease with heart failure (principal); I25.10 Atherosclerotic heart disease of native coronary artery without angina pectoris; I50.9 Heart failure, unspecified; H91.90 Unspecified hearing loss, unspecified ear; H54.7 Unspecified visual loss; I50.23 Acute on chronic systolic (congestive) heart failure; Z95.1 Presence of aortocoronary bypass graft; E78.00 Pure hypercholesterolemia, unspecified; I48.91 Unspecified atrial fibrillation; G47.30 Sleep apnea, unspecified; I25.5 Ischemic cardiomyopathy; J44.9 Chronic obstructive pulmonary disease, unspecified; E11.21 Type 2 diabetes mellitus with diabetic nephropathy; G89.29 Other chronic pain; M54.9 Dorsalgia, unspecified; F32.9 Major depressive disorder, single episode, unspecified; K21.9 Gastro-esophageal reflux disease without esophagitis; E55.9 Vitamin D deficiency, unspecified; K59.09 Other constipation; E11.42 Type 2 diabetes mellitus with diabetic polyneuropathy; Z79.82 Long term (current) use of aspirin; G47.33 Obstructive sleep apnea (adult) (pediatric); Z79.51 Long term (current) use of inhaled steroids; E78.5 Hyperlipidemia, unspecified; Z99.81 Dependence on supplemental oxygen; Z79.01 Long term (current) use of anticoagulants; Z86.73 Personal history of transient ischemic attack (TIA), and cerebral infarction without residual deficits; Z88.8 Allergy status to other drugs, medicaments and biological substances; Z79.4 Long term (current) use of insulin; Z79.899 Other long term (current) drug therapy
CPT/HCPCS: 36415; 71046; 80053; 82550; 82553; 83880 ×2; 84484; 85025; 85610; 85730; 87804 ×2; 93005; 94640; 96374; 99285; J1940; 80048; 82962; 96376; A9270-GY; J1815-GY; J7620-GY

== ENCOUNTER 2019-04-11 09:10 | Emergency (ER) | payer MEDICARE, MEDICAID ==
[2019-04-11 09:39] VITALS: BP 120/71; PULSE 104
[2019-04-11 10:11] LABS: ANION GAP 14.8 mmol/L (5-15); CHLORIDE,CL 100 mmol/L (98-115); SODIUM,NA 140 mmol/L (136-145)
--- NOTE | 2019-04-11 10:16 | EDM.PDOC ---
ED HPI GENERAL MEDICAL PROBLEM - General Chief Complaint: Respiratory Problem Time Seen by Provider: 04/11/19 09:53 Source of Information: Reports: Patient, Significant Other History Limitations: Reports: Other (difficult to understand secondary to dementia per ) - History of Present Illness INITIAL COMMENTS - FREE TEXT/NARRATIVE: Patient presents from [place] with tachypnea and hypoxia. He has known COPD, CHF and Afib. He was recently hospitalized with fluid retention on IV lasix (04/06-). During the hospitalization he didn't have the breathing difficulty he is having now. He is weaker than usual and hasn't been able to walk with his walker for nearly a week. - Related Data Allergies Allergy/AdvReac Type Severity Reaction Status Date / Time lisinopril Allergy Rash Verified 04/11/19 09:43 Home Meds: Home Meds Omeprazole [Prilosec] 40 mg PO DAILY 11/10/13 [History] atorvaSTATin [Lipitor] 10 mg PO BEDTIME 03/22/15 [History] Fluticasone Propionate [Flonase] 2 sprays NASBOTH DAILY PRN 03/29/16 [History] Furosemide [Lasix] 40 mg PO DAILY 03/29/16 [History] Tamsulosin HCl [Flomax] 0.8 mg PO BEDTIME 03/29/16 [History] Warfarin Dosing [Coumadin Ask] 7.5 mg PO SUTUTHSA 03/29/16 [History] buPROPion [Wellbutrin XL] 300 mg PO DAILY 08/26/16 [History] Aspirin [Halfprin] 81 mg PO DAILY 01/10/17 [History] Metoprolol Succinate [Toprol XL] 200 mg PO DAILY 01/10/17 [History] metFORMIN HCl [Metformin HCl] 1,000 mg PO BIDMEALS 02/21/17 [History] Docusate Sodium [Colace] 200 mg PO DAILY PRN 02/07/18 [History] Gabapentin [Neurontin] 300 mg PO BID 02/07/18 [History] Albuterol Sulfate [Proair Hfa] 2 inhaler IH Q6H PRN 03/21/18 [History] Budesonide [Pulmicort] 2 ml INH BID 10/07/18 [History] Loratadine 10 mg PO DAILY PRN 10/07/18 [History] Losartan Potassium 25 mg PO DAILY 10/07/18 [History] Warfarin Sodium 5 mg PO MOWEFR 10/07/18 [History] Acetaminophen [8Hr Arthritis Pain] 650 mg PO Q8H PRN 04/06/19 [History] Albuterol/Ipratropium [DuoNeb 3.0-0.5 MG/3 ML] 1 ampule INH Q6H PRN 04/06/19 [ History] Bacillus Coagulans [Probiotic] 1 each PO DAILY 04/06/19 [History] Calcium Carbonate/Vitamin D3 [Calcium Carbonate/Vitamin D 600 MG-200 Unit] 1 cap PO BID 04/06/19 [History] Cholecalciferol (Vitamin D3) [Vitamin D3] 1,000 unit PO DAILY 04/06/19 [History] Cyanocobalamin (Vitamin B12) [Vitamin B12] 500 mcg PO DAILY 04/06/19 [History] Donepezil HCl 10 mg PO DAILY 04/06/19 [History] Furosemide [Lasix] 80 mg PO DAILY PRN 04/06/19 [History] Insulin Glargine,Hum.Rec.Anlog [Basaglar Kwikpen U-100] 15 units SUBCUT BEDTIME 04/06/19 [History] Melatonin 6 mg PO BEDTIME PRN 04/06/19 [History] [place]-3/DHA/Epa/Fish Oil [[place] 3 500 Softgel] 2 cap PO DAILY 04/06/19 [History] glipiZIDE [Glucotrol] 10 mg PO BIDMEALS 04/06/19 [History] Past Medical History HEENT History: Reports: Hard of Hearing, Impaired Vision, Other (See Below) Other HEENT History: rhinitis Cardiovascular History: Reports: Afib, Bypass, CAD, Heart Failure, High Cholesterol, Hypertension, SOB on Exertion, Other (See Below) Other Cardiovascular History: Fluid build up in lungs-heart surgery Respiratory History: Reports: COPD, Sleep Apnea Other Respiratory History: O2 - continuous Gastrointestinal History: Reports: Chronic Constipation, Chronic Diarrhea, GERD Genitourinary History: Reports: BPH, Diabetic Nephropathy Other Genitourinary History: prostate swelling Musculoskeletal History: Reports: Back Pain, Chronic, Fracture, Other (See Below ) Other Musculoskeletal History: right ankle fx. 2019 Neurological History: Reports: None, Neuropathy, Diabetic Other Neuro History: CVA vs TIA - 14 years ago Psychiatric History: Reports: Dementia, Depression Endocrine/Metabolic History: Reports: Diabetes, Type II, Vitamin D Deficiency - Infectious Disease History Infectious Disease History: Reports: Chicken Pox, Shingles - Past Surgical History Head Surgeries/Procedures: Reports: None Other HEENT Surgeries/Procedures: suture to eyelid Cardiovascular Surgical History: Reports: Coronary Artery Bypass, Vascular Surgery GI Surgical History: Reports: Colonoscopy, Hernia, Inguinal Male Surgical History: Reports: None Endocrine Surgical History: Reports: None Social & Family History - Family History Family Medical History: Noncontributory - Caffeine Use Caffeine Use: Reports: Coffee, Soda ED ROS GENERAL - Review of Systems Review Of Systems: See Below Constitutional: Reports: Fever HEENT: Denies: Throat Pain, Throat Swelling Respiratory: Reports: Shortness of Breath, Cough Cardiovascular: Denies: Chest Pain, Lightheadedness, Syncope GI/Abdominal: Denies: Abdominal Pain, Diarrhea, Vomiting : Denies: Dysuria Musculoskeletal: Reports: No Symptoms Skin: Denies: Cyanosis, Jaundice, Mottled, Pallor, Diaphoresis Neurological: Denies: Seizure, Syncope Psychiatric: Denies: Agitation, Anxiety Hematologic/Lymphatic: Reports: Easy Bleeding (on warfarin) ED EXAM, GENERAL - Physical Exam Exam: See Below Exam Limited By: Other (dementia and difficulty understanding speech) General Appearance: Alert, No Apparent Distress Eye Exam: Bilateral Eye: EOMI, Normal Inspection, PERRL Ears: Normal External Exam, Hearing Grossly Normal Nose: Normal Inspection, No Blood Throat/Mouth: Normal Inspection, Normal Lips, Other (weak voice) Head: Atraumatic, Normocephalic Neck: Normal Inspection, Supple, Non-Tender. No: Carotid Bruit Respiratory/Chest: Crackles (bilat throughout), Wheezing (expiratory) Cardiovascular: Regular Rate, Rhythm, No Edema, No Gallop, No JVD Peripheral Pulses: 2+: Carotid (L), Carotid (R), Radial (L), Radial (R), Posterior Tibial (L), Posterior Tibial (R) GI/Abdominal: Normal Bowel Sounds, Distended (mild). No: Guarding, Rigid, Tender Back Exam: Normal Inspection Extremities: Normal Inspection, Normal Range of Motion, Non-Tender, Pedal Edema (2+ bilat) Neurological: Alert, Oriented (seems to be), No Motor/Sensory Deficits Psychiatric: Normal Affect, Normal Mood Skin Exam: Warm, Dry, Intact, No Rash, Pallor Course - Vital Signs Last Recorded V/S: Last Vital Signs Temp 99.9 F 04/11/19 09:34 Pulse 104 H 04/11/19 09:34 Resp 35 H 04/11/19 09:34 BP 120/71 04/11/19 09:34 Pulse Ox 91 L 04/11/19 09:34 - Orders/Labs/Meds Orders: Active Orders 24 hr Category Date Time Status EKG Documentation Completion [RC] ASDIRECTED Care 04/11/19 10:45 Ordered Peripheral IV Care [RC] . DIRECTED Care 04/11/19 09:32 Active CULTURE BLOOD [BC] Stat Lab 04/11/19 09:30 Received CULTURE BLOOD [BC] Stat Lab 04/11/19 09:31 Ordered UA W/MICROSCOPIC [URIN] Stat Lab 04/11/19 10:44 Ordered Piperacillin/Tazobactam [Zosyn] 4.5 gm Med 04/11/19 10:54 Ordered Sodium Chloride 0.9% [Normal Saline] 100 ml IV ONETIME Sodium Chloride 0.9% [Saline Flush] Med 04/11/19 09:31 Active 10 ml FLUSH Q8HR PRN Peripheral IV Insertion Adult [OM.PC] Routine Oth 04/11/19 09:31 Ordered Medication Orders Piperacillin Sod/Tazobactam (Sod 4.5 gm/ Sodium Chloride) 100 mls @ 200 mls/hr IV ONETIME ONE Stop: 04/11/19 11:23 Sodium Chloride (Saline Flush) 10 ml FLUSH Q8HR PRN PRN Reason: keep vein open Labs: Laboratory Tests 04/11/19 04/11/19 04/11/19 Range/Units 09:30 09:30 09:30 WBC 13.73 H (5.00-10.00) 10^3/uL RBC 3.34 L (4.50-6.00) 10^6/uL Hgb 9.4 L (13.0-17.0) g/dL Hct 30.0 L (40.0-52.0) % MCV 89.8 (82.0-92.0) fL MCH 28.1 (27.0-31.0) pg MCHC 31.3 L (32.0-36.0) g/dL RDW 18.6 H (11.5-14.5) % Plt Count 315 (150-400) 10^3/uL MPV 8.6 (7.4-10.4) fL Immature Gran % (Auto) 0.4 (0.0-5.0) % Neut % (Auto) 85.8 H (50.0-70.0) % Lymph % (Auto) 6.2 L (20.0-40.0) % [place] % (Auto) 6.9 (2.0-8.0) % Eos % (Auto) 0.4 L (1.0-3.0) % Baso % (Auto) 0.3 (0.0-1.0) % Immature Gran # (Auto) 0.05 (0.00-0.50) 10^3/uL Neut # (Auto) 11.78 H (2.50-7.00) 10^3/uL Lymph # (Auto) 0.85 L (1.00-4.00) 10^3/uL [place] # (Auto) 0.95 H (0.10-0.80) 10^3/uL Eos # (Auto) 0.06 L (0.10-0.30) 10^3/uL Baso # (Auto) 0.04 (0.00-0.10) 10^3/uL Sodium 140 (136-145) mmol/L Potassium 4.1 (3.3-5.3) mmol/L Chloride 100 (98-115) mmol/L Carbon Dioxide 29.3 (21.0-32.0) mmol/L Anion Gap 14.8 (5-15) mmol/L BUN 29 H (6-25) mg/dL Creatinine 0.97 (0.51-1.17) mg/dL Est Cr Clr Drug Dosing 56.64 mL/min Estimated GFR (MDRD) > 60 mL/min Glucose 131 H (75 - 99) mg/dL Lactic Acid 2.6 H (0.4-2.0) mmol/L Calcium 8.6 L (8.7-10.3) mg/dL Troponin I < 0.04 (0.00-0.070) ng/mL B-Natriuretic Peptide (0-100) pg/mL 04/11/19 Range/Units 09:30 WBC (5.00-10.00) 10^3/uL RBC (4.50-6.00) 10^6/uL Hgb (13.0-17.0) g/dL Hct (40.0-52.0) % MCV (82.0-92.0) fL MCH (27.0-31.0) pg MCHC (32.0-36.0) g/dL RDW (11.5-14.5) % Plt Count (150-400) 10^3/uL MPV (7.4-10.4) fL Immature Gran % (Auto) (0.0-5.0) % Neut % (Auto) (50.0-70.0) % Lymph % (Auto) (20.0-40.0) % [place] % (Auto) (2.0-8.0) % Eos % (Auto) (1.0-3.0) % Baso % (Auto) (0.0-1.0) % Immature Gran # (Auto) (0.00-0.50) 10^3/uL Neut # (Auto) (2.50-7.00) 10^3/uL Lymph # (Auto) (1.00-4.00) 10^3/uL [place] # (Auto) (0.10-0.80) 10^3/uL Eos # (Auto) (0.10-0.30) 10^3/uL Baso # (Auto) (0.00-0.10) 10^3/uL Sodium (136-145) mmol/L Potassium (3.3-5.3) mmol/L Chloride (98-115) mmol/L Carbon Dioxide (21.0-32.0) mmol/L Anion Gap (5-15) mmol/L BUN (6-25) mg/dL Creatinine (0.51-1.17) mg/dL Est Cr Clr Drug Dosing mL/min Estimated GFR (MDRD) mL/min Glucose (75 - 99) mg/dL Lactic Acid (0.4-2.0) mmol/L Calcium (8.7-10.3) mg/dL Troponin I (0.00-0.070) ng/mL B-Natriuretic Peptide 1020 H (0-100) pg/mL Meds: Medications Generic Name Dose Route Start Last Admin Trade Name Freq PRN Reason Stop Dose Admin Piperacillin Sod/Tazobactam 100 mls @ 200 mls/hr 04/11/19 10:54 Sod 4.5 gm/ Sodium Chloride IV 04/11/19 11:23 ONETIME ONE Sodium Chloride 10 ml 04/11/19 09:31 Saline Flush FLUSH Q8HR PRN keep vein open Discontinued Medications Generic Name Dose Route Start Last Admin Trade Name Yaneth PRN Reason Stop Dose Admin Furosemide 40 mg 04/11/19 11:11 Lasix IVPUSH 04/11/19 11:12 NOW ONE - Re-Assessments/Exams Free Text/Narrative Re-Assessment/Exam: 04/11/19 10:56 INR this morning at [place] was 5.5. CXR shows vascular congestion similar to 5 days ago but resolution of basilar effusions noted then. WBC is 13.73 and ANC is 11.78. Lactate 2.6. 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 I called up there and discussed case with ER Dr. Wall who accepted for transfer. Will give first dose of Zosyn IV now. Patient has improved modestly with sats 92-95 % range and RR 32. HR is mid 90's now. Will also give dose of IV Lasix since he didn't get his morning meds today. 04/11/19 11:15 tells me that she would be more comfortable if patient could be where his matrix worker is and especially since his PCP, Dr. Carter is out of town this week. This is very reasonable. Departure - Departure Time of Disposition: 11:09 Disposition: DC/Tfer to Acute Hospital 02 Condition: Fair Clinical Impression: HCAP (healthcare-associated pneumonia), COPD with exacerbation, Neutrophilic leukocytosis, Tachypnea, Hypoxemia CHF exacerbation Qualifiers: Heart failure type: unspecified Qualified Code(s): I50.9 - Heart failure, unspecified - Discharge Information Referrals: Lupe Burch MD [Primary Care Provider] - Forms: ED Department Discharge Sepsis Event Note - Evaluation Sepsis Screening Result: Possible Sepsis Risk - Focused Exam Vital Signs: Vital Signs Temp Pulse Resp BP Pulse Ox 04/11/19 09:34 99.9 F 104 H 35 H 120/71 91 L Date Exam was Performed: 04/11/19 Time Exam was Performed: 11:14 - My Orders Last 24 Hours: My Active Orders 04/11/19 09:30 CULTURE BLOOD [BC] Stat 04/11/19 09:31 CULTURE BLOOD [BC] Stat Sodium Chloride 0.9% [Saline Flush] 10 ml FLUSH Q8HR PRN Peripheral IV Insertion Adult [OM.PC] Routine 04/11/19 09:32 Peripheral IV Care [RC] . DIRECTED 04/11/19 10:44 UA W/MICROSCOPIC [URIN] Stat 04/11/19 10:45 EKG Documentation Completion [RC] ASDIRECTED 04/11/19 10:54 Piperacillin/Tazobactam [Zosyn] 4.5 gm Sodium Chloride 0.9% [Normal Saline] 100 ml IV ONETIME - Assessment/Plan Last 24 Hours: My Active Orders 04/11/19 09:30 CULTURE BLOOD [BC] Stat 04/11/19 09:31 CULTURE BLOOD [BC] Stat Sodium Chloride 0.9% [Saline Flush] 10 ml FLUSH Q8HR PRN Peripheral IV Insertion Adult [OM.PC] Routine 04/11/19 09:32 Peripheral IV Care [RC] . DIRECTED 04/11/19 10:44 UA W/MICROSCOPIC [URIN] Stat 04/11/19 10:45 EKG Documentation Completion [RC] ASDIRECTED 04/11/19 10:54 Piperacillin/Tazobactam [Zosyn] 4.5 gm Sodium Chloride 0.9% [Normal Saline] 100 ml IV ONETIME
--- NOTE | 2019-04-11 10:24 | CR ---
[id number] RAD/RAD Chest PA or AP 1V EXAM: RAD Chest PA or AP 1V INDICATION: DECREASED SATS. COMPARISON: April 06, 2019. DISCUSSION: Cardiomegaly and central vascular congestion, similar to the prior examination. Blunting of the costophrenic sulci seen on the prior examinations has resolved on the PA view. No other significant change. IMPRESSION: Persistent cardiomegaly and central vascular congestion, similar to the prior examination. Radiographic resolution of previously seen effusions on the PA view. Chester Barroso MD 04/11/19 1023 Thank you for allowing us to participate in the care of your patient.
[2019-04-11] MEDS ORDERED: Piperacillin/Tazobactam 4.5 GM in Sodium Chloride 0.9% 100 ML IV ONE (10:54)
[2019-04-11] MEDS ORDERED: Furosemide 40 MG/4 ML VIAL IVPUSH ONE (11:11)
[2019-04-11] MEDS: Sodium Chloride 0.9% 10 ML Syringe FLUSH PRN ×2 (11:15→11:24)
== END 2019-04-11 12:00 ==
LOC: KA.ED 09:10
DX: I11.0 Hypertensive heart disease with heart failure (principal); I50.9 Heart failure, unspecified; J44.0 Chronic obstructive pulmonary disease with (acute) lower respiratory infection; J18.9 Pneumonia, unspecified organism; J44.1 Chronic obstructive pulmonary disease with (acute) exacerbation; R09.02 Hypoxemia; D72.829 Elevated white blood cell count, unspecified; K21.9 Gastro-esophageal reflux disease without esophagitis; E11.21 Type 2 diabetes mellitus with diabetic nephropathy; F03.90 Unspecified dementia, unspecified severity, without behavioral disturbance, psychotic disturbance, mood disturbance, and anxiety; F32.9 Major depressive disorder, single episode, unspecified; I25.10 Atherosclerotic heart disease of native coronary artery without angina pectoris; I48.91 Unspecified atrial fibrillation; E11.40 Type 2 diabetes mellitus with diabetic neuropathy, unspecified; Z79.4 Long term (current) use of insulin; Z79.01 Long term (current) use of anticoagulants; Z79.899 Other long term (current) drug therapy; Z86.73 Personal history of transient ischemic attack (TIA), and cerebral infarction without residual deficits; Z95.1 Presence of aortocoronary bypass graft
CPT/HCPCS: 71045; 80048; 83605; 83880; 84484; 85025; 87040; 93005; 96365; 96375; 99284; 99285-25; J1940; J2543; J7050